=== PATIENT | female | born 1965 | race Hispanic/Latino ===

== ENCOUNTER 2020-11-25 23:26 | Inpatient (IN) | payer MEDICAID, SELFPAY ==
[2020-11-26] MEDS ORDERED: Ondansetron ODT 4 MG TAB PO PRN (01:53)
[2020-11-26 04:23] LABS: SARS-CoV-2 NAA Rapid Test Presumptive Positive (NotDetected)
[2020-11-26 06:36] LABS: Hemoglobin 14.3 g/dL (12.0-16.0); Mean Corpuscular HGB CONC 33.5 g/dL (32.0-36.0); Mean Corpuscular Hemoglobin 32.4 pg (27.0-31.0); Mean Corpuscular Volume 96.7 fL (78.0-98.0); Mean Platelet Volume 7.8 fL (7.4-10.4); Platelet Count 183 thou/uL (130-400); RBC Distribution Width 12.6 % (11.5-14.5); Red Blood Cell (RBC) Count 4.42 mill/uL (4.20-5.40)
[2020-11-26 06:42] LABS: ALT (SGPT) 202 U/L (8-55); AST (SGOT) 201 U/L (5-34); Albumin 3.7 g/dL (3.5-5.0); Alkaline Phosphatase 75 U/L (40-110); Anion Gap 17 mmol/L (10-20); BUN (Urea Nitrogen) 11 mg/dL (9.8-20.1); Bilirubin, Total 0.3 mg/dL (0.2-1.2); Calc. Creatinine Clearance 0 mL/min (70-130); Carbon Dioxide 19 mmol/L (22-29); Chloride 106 mmol/L (98-107); Globulin 4.2 g/dL (2.4-3.5); Glucose 214 mg/dL (70-105); Potassium 4.1 mmol/L (3.5-5.1); Protein, Total 7.9 g/dL (6.0-8.3); Sodium 138 mmol/L (136-145)
[2020-11-26 06:49] LABS: Band 5 % (5-11); Lymphocytes 40 % (21-51); MDiff Complete? YES; Monocytes 7 % (0-10); Neutrophil 47 % (42-75); Platelet Morphology Comment Appears Adequate; RBC Morphology Normal; Reactive Lymphocytes 1 % (0-10)
[2020-11-26] MEDS ORDERED: Enoxaparin Sodium 40 MG/0.4 ML SYRINGE SC SCH (09:00)
[2020-11-26] MEDS ORDERED: Dexamethasone 10 MG/ML VIAL ONE (12:02)
[2020-11-26] MEDS: Dexamethasone Sod Phosphate 6 MG in Sodium Chloride 0.9% 50 ML IVPB SCH (12:02)
[2020-11-26] MEDS: Cholecalciferol (Vitamin D3) 400 UNITS TAB PO SCH (12:03)
[2020-11-26] MEDS: Ascorbic Acid 500 mg Chewable Tablet PO SCH (12:03)
[2020-11-26] MEDS: Zinc Sulfate 220 MG CAP PO SCH (12:04)
[2020-11-26] MEDS: Enoxaparin Sodium 40 MG/0.4 ML SYRINGE SC SCH (20:33)
[2020-11-26] MEDS: Guaifenesin DM 100-10/5 ML UDCUP PO PRN (20:34)
[2020-11-26] MEDS: Acetaminophen 325 MG TAB PO PRN (20:34)
[2020-11-27] MEDS: Acetaminophen 325 MG TAB PO PRN ×4 (01:28→20:26)
[2020-11-27] MEDS: Guaifenesin DM 100-10/5 ML UDCUP PO PRN ×3 (08:43→20:26)
[2020-11-27] MEDS: Ascorbic Acid 500 mg Chewable Tablet PO SCH (08:43)
[2020-11-27] MEDS: Famotidine 20 MG TAB PO SCH ×2 (08:44→20:11)
[2020-11-27] MEDS: Enoxaparin Sodium 40 MG/0.4 ML SYRINGE SC SCH ×2 (08:44→20:10)
[2020-11-27] MEDS: Zinc Sulfate 220 MG CAP PO SCH (08:44)
[2020-11-27] MEDS: Ondansetron PF 4 MG/2 ML Vial IVP PRN (09:05)
[2020-11-27] MEDS: Cholecalciferol (Vitamin D3) 400 UNITS TAB PO SCH (11:52)
[2020-11-27] MEDS: Dexamethasone Sod Phosphate 6 MG in Sodium Chloride 0.9% 50 ML IVPB SCH (11:52)
[2020-11-27] MEDS ORDERED: FLU VACC QS2020-21(6MOS UP)/PF 60 MCG/0.5 ML SYRINGE IM ONE (21:00)
[2020-11-28] MEDS: Guaifenesin DM 100-10/5 ML UDCUP PO PRN ×4 (02:02→22:06)
[2020-11-28] MEDS: Acetaminophen 325 MG TAB PO PRN ×3 (02:02→15:55)
[2020-11-28 06:35] LABS: #Basophils 0.1 thou/uL (0.0-0.2); #Lymphocytes 1.4 thou/uL (1.20-3.40); #Monocytes 0.3 thou/uL (0.11-0.59); #Neutrophils 12.6 thou/uL (1.40-6.50); %Basophils 0.6 % (0.0-1.0); %Eosinophils 0.1 % (0.0-10.0); %Monocytes 2.3 % (0.0-10.0); %Neutrophils 87.1 % (42.0-75.0); Hemoglobin 13.8 g/dL (12.0-16.0); Mean Corpuscular HGB CONC 32.4 g/dL (32.0-36.0); Mean Corpuscular Hemoglobin 31.1 pg (27.0-31.0); Mean Corpuscular Volume 95.9 fL (78.0-98.0); Mean Platelet Volume 8.2 fL (7.4-10.4); Platelet Count 225 thou/uL (130-400); RBC Distribution Width 12.6 % (11.5-14.5); Red Blood Cell (RBC) Count 4.44 mill/uL (4.20-5.40); White Blood Cell (WBC) Count 14.4 thou/uL (4.8-10.8)
[2020-11-28 06:57] LABS: Anion Gap 15 mmol/L (10-20); BUN (Urea Nitrogen) 14 mg/dL (9.8-20.1); Calc. Creatinine Clearance 129 mL/min (70-130); Calcium 8.2 mg/dL (7.8-10.44); Carbon Dioxide 25 mmol/L (22-29); Chloride 103 mmol/L (98-107); Glucose 183 mg/dL (70-105); Potassium 4.1 mmol/L (3.5-5.1); Sodium 139 mmol/L (136-145)
[2020-11-28] MEDS ORDERED: REMDESIVIR (EUA) 200 MG in Sodium Chloride 0.9% 250 ML 210 ML IV SCH (08:45)
[2020-11-28] MEDS: Enoxaparin Sodium 40 MG/0.4 ML SYRINGE SC SCH ×2 (09:08→22:06)
[2020-11-28] MEDS: Ascorbic Acid 500 mg Chewable Tablet PO SCH (09:09)
[2020-11-28] MEDS: Zinc Sulfate 220 MG CAP PO SCH (09:09)
[2020-11-28] MEDS: Cholecalciferol (Vitamin D3) 400 UNITS TAB PO SCH (09:09)
[2020-11-28] MEDS: Fluconazole 100 MG TAB PO SCH (09:09)
[2020-11-28] MEDS: Famotidine 20 MG TAB PO SCH ×2 (09:14→22:06)
[2020-11-28] MEDS: Dexamethasone Sod Phosphate 6 MG in Sodium Chloride 0.9% 50 ML IVPB SCH (09:14)
[2020-11-28] MEDS: Ondansetron PF 4 MG/2 ML Vial IVP PRN (10:49)
[2020-11-28 23:32] LABS: Actual Bicarbonate (HCO3a) 27.1 mEq/L (22-28); Base Excess (BEa) 2.1 mEq/L (-2.0 to +3.0); CO2 Tension 43.7 mmHg (35.0-45.0); Calcium, Ionized (arterial) 1.12 mmol/L (1.12-1.30); Carboxyhemoglobin (COHb) 0.9 gm% (0.0-3.0); Hemoglobin (Hb) 14.4 g/dL (12.0-16.0); Potassium - ABG Lab 3.93 mmol/L (3.70-5.30); pH, Arterial 7.41 (7.35-7.45)
[2020-11-28 23:36] LABS: Puncture Site RRA
[2020-11-28 23:37] LABS: ALV-art Gradient 399.475 mmHg (0-20)
[2020-11-29] MEDS: Ascorbic Acid 500 mg Chewable Tablet PO SCH (10:37)
[2020-11-29] MEDS: REMDESIVIR (EUA) 100 MG in Sodium Chloride 0.9% 250 ML 230 ML IV SCH (10:37)
[2020-11-29] MEDS: Dexamethasone Sod Phosphate 6 MG in Sodium Chloride 0.9% 50 ML IVPB SCH ×2 (10:37→20:54)
[2020-11-29] MEDS: Enoxaparin Sodium 40 MG/0.4 ML SYRINGE SC SCH ×2 (10:37→20:55)
[2020-11-29] MEDS: Famotidine 20 MG TAB PO SCH ×2 (10:38→20:55)
[2020-11-29] MEDS: Zinc Sulfate 220 MG CAP PO SCH (10:38)
[2020-11-29] MEDS: Fluconazole 100 MG TAB PO SCH (10:38)
[2020-11-29] MEDS: Cholecalciferol (Vitamin D3) 400 UNITS TAB PO SCH (10:38)
[2020-11-30 04:00] LABS: #Lymphocytes 0.8 thou/uL (1.20-3.40); #Monocytes 0.3 thou/uL (0.11-0.59); #Neutrophils 9.7 thou/uL (1.40-6.50); %Basophils 0.2 % (0.0-1.0); %Eosinophils 0.1 % (0.0-10.0); %Lymphocytes 7.7 % (21.0-51.0); %Monocytes 2.8 % (0.0-10.0); %Neutrophils 89.2 % (42.0-75.0); Mean Corpuscular Volume 96.9 fL (78.0-98.0); Mean Platelet Volume 8.7 fL (7.4-10.4); Platelet Count 251 thou/uL (130-400); RBC Distribution Width 12.7 % (11.5-14.5); Red Blood Cell (RBC) Count 4.38 mill/uL (4.20-5.40); White Blood Cell (WBC) Count 10.8 thou/uL (4.8-10.8)
[2020-11-30 04:19] LABS: ALT (SGPT) 66 U/L (8-55); AST (SGOT) 55 U/L (5-34); Albumin 3.3 g/dL (3.5-5.0); Alkaline Phosphatase 134 U/L (40-110); Anion Gap 16 mmol/L (10-20); BUN (Urea Nitrogen) 19 mg/dL (9.8-20.1); Bilirubin, Direct 0.3 mg/dL (0.1-0.3); Bilirubin, Total 0.4 mg/dL (0.2-1.2); Calc. Creatinine Clearance 138 mL/min (70-130); Calcium 8.3 mg/dL (7.8-10.44); Carbon Dioxide 24 mmol/L (22-29); Chloride 107 mmol/L (98-107); Glucose 195 mg/dL (70-105); Potassium 4.2 mmol/L (3.5-5.1); Protein, Total 7.3 g/dL (6.0-8.3); Sodium 143 mmol/L (136-145)
[2020-11-30] MEDS: Ascorbic Acid 500 mg Chewable Tablet PO SCH (07:45)
[2020-11-30] MEDS: Enoxaparin Sodium 40 MG/0.4 ML SYRINGE SC SCH ×2 (07:46→20:33)
[2020-11-30] MEDS: Fluconazole 100 MG TAB PO SCH (07:46)
[2020-11-30] MEDS: Famotidine 20 MG TAB PO SCH ×2 (07:46→20:33)
[2020-11-30] MEDS: Cholecalciferol (Vitamin D3) 400 UNITS TAB PO SCH (07:46)
[2020-11-30] MEDS: Zinc Sulfate 220 MG CAP PO SCH (07:46)
[2020-11-30] MEDS: Dexamethasone Sod Phosphate 6 MG in Sodium Chloride 0.9% 50 ML IVPB SCH ×2 (09:23→20:33)
[2020-11-30] MEDS: REMDESIVIR (EUA) 100 MG in Sodium Chloride 0.9% 250 ML 230 ML IV SCH (11:35)
[2020-12-01] MEDS: Ondansetron PF 4 MG/2 ML Vial IVP PRN (02:46)
[2020-12-01 04:39] LABS: SARS-CoV-2 MS2 Positive; SARS-CoV-2 N Gene Positive; SARS-CoV-2 S Gene Positive; SARS-CoV-2 by NAA DETECTED (NotDetected); SARS-CoV-2 orf1ab Positive
[2020-12-01 04:52] LABS: ALT (SGPT) 51 U/L (8-55); AST (SGOT) 46 U/L (5-34); Albumin 3.3 g/dL (3.5-5.0); Alkaline Phosphatase 195 U/L (40-110); Anion Gap 16 mmol/L (10-20); BUN (Urea Nitrogen) 25 mg/dL (9.8-20.1); Bilirubin, Direct 0.2 mg/dL (0.1-0.3); Bilirubin, Total 0.4 mg/dL (0.2-1.2); Calc. Creatinine Clearance 134 mL/min (70-130); Calcium 8.4 mg/dL (7.8-10.44); Carbon Dioxide 25 mmol/L (22-29); Chloride 109 mmol/L (98-107); Glucose 246 mg/dL (70-105); Potassium 4.3 mmol/L (3.5-5.1); Protein, Total 7.5 g/dL (6.0-8.3); Sodium 146 mmol/L (136-145)
[2020-12-01 05:29] LABS: Band 4 % (5-11); Hemoglobin 13.6 g/dL (12.0-16.0); Lymphocytes 6 % (21-51); MDiff Complete? YES; Mean Corpuscular HGB CONC 32.6 g/dL (32.0-36.0); Mean Corpuscular Hemoglobin 31.7 pg (27.0-31.0); Mean Corpuscular Volume 97.3 fL (78.0-98.0); Monocytes 2 % (0-10); Neutrophil 88 % (42-75); Platelet Count 302 thou/uL (130-400); RBC Distribution Width 12.8 % (11.5-14.5); White Blood Cell (WBC) Count 14.3 thou/uL (4.8-10.8)
[2020-12-01] MEDS: Ascorbic Acid 500 mg Chewable Tablet PO SCH (08:04)
[2020-12-01] MEDS: Cholecalciferol (Vitamin D3) 400 UNITS TAB PO SCH (08:04)
[2020-12-01] MEDS: Famotidine 20 MG TAB PO SCH ×2 (08:05→20:36)
[2020-12-01] MEDS: Zinc Sulfate 220 MG CAP PO SCH (08:05)
[2020-12-01] MEDS: Enoxaparin Sodium 40 MG/0.4 ML SYRINGE SC SCH ×2 (08:06→20:36)
[2020-12-01] MEDS: Dexamethasone Sod Phosphate 6 MG in Sodium Chloride 0.9% 50 ML IVPB SCH ×2 (08:07→20:36)
[2020-12-01] MEDS: REMDESIVIR (EUA) 100 MG in Sodium Chloride 0.9% 250 ML 230 ML IV SCH (12:31)
[2020-12-02] MEDS: Acetaminophen 325 MG TAB PO PRN ×3 (03:03→20:56)
[2020-12-02] MEDS: Guaifenesin DM 100-10/5 ML UDCUP PO PRN (03:05)
[2020-12-02 04:07] LABS: ALT (SGPT) 43 U/L (8-55); AST (SGOT) 42 U/L (5-34); Albumin 3.1 g/dL (3.5-5.0); Alkaline Phosphatase 252 U/L (40-110); Anion Gap 18 mmol/L (10-20); BUN (Urea Nitrogen) 22 mg/dL (9.8-20.1); Bilirubin, Direct 0.2 mg/dL (0.1-0.3); Bilirubin, Total 0.5 mg/dL (0.2-1.2); Calc. Creatinine Clearance 133 mL/min (70-130); Calcium 8.1 mg/dL (7.8-10.44); Carbon Dioxide 22 mmol/L (22-29); Chloride 107 mmol/L (98-107); Glucose 298 mg/dL (70-105); Potassium 4.6 mmol/L (3.5-5.1); Sodium 142 mmol/L (136-145)
[2020-12-02 04:33] LABS: Band 10 % (5-11); Lymphocytes 4 % (21-51); MDiff Complete? YES; Mean Corpuscular HGB CONC 30.4 g/dL (32.0-36.0); Mean Corpuscular Hemoglobin 29.5 pg (27.0-31.0); Mean Corpuscular Volume 97.2 fL (78.0-98.0); Neutrophil 86 % (42-75); Platelet Count 222 thou/uL (130-400); RBC Distribution Width 12.9 % (11.5-14.5); Red Blood Cell (RBC) Count 4.74 mill/uL (4.20-5.40); White Blood Cell (WBC) Count 12.8 thou/uL (4.8-10.8)
[2020-12-02] MEDS: Cholecalciferol (Vitamin D3) 400 UNITS TAB PO SCH (09:16)
[2020-12-02] MEDS: Famotidine 20 MG TAB PO SCH (09:16)
[2020-12-02] MEDS: Zinc Sulfate 220 MG CAP PO SCH (09:16)
[2020-12-02] MEDS: Enoxaparin Sodium 40 MG/0.4 ML SYRINGE SC SCH ×2 (09:16→20:56)
[2020-12-02] MEDS: Dexamethasone Sod Phosphate 6 MG in Sodium Chloride 0.9% 50 ML IVPB SCH ×2 (09:17→20:56)
[2020-12-02] MEDS: Ascorbic Acid 500 mg Chewable Tablet PO SCH (09:17)
[2020-12-02] MEDS: REMDESIVIR (EUA) 100 MG in Sodium Chloride 0.9% 250 ML 230 ML IV SCH (11:11)
[2020-12-02] MEDS ORDERED: Pantoprazole 40 MG VIAL IVP SCH (16:15)
[2020-12-02] MEDS: Doxycycline 100 MG CAP PO SCH (20:56)
[2020-12-03] MEDS: Guaifenesin DM 100-10/5 ML UDCUP PO PRN (02:22)
[2020-12-03 03:58] LABS: Anion Gap 15 mmol/L (10-20); BUN (Urea Nitrogen) 19 mg/dL (9.8-20.1); Calc. Creatinine Clearance 142 mL/min (70-130); Calcium 8.1 mg/dL (7.8-10.44); Carbon Dioxide 25 mmol/L (22-29); Chloride 101 mmol/L (98-107); Glucose 270 mg/dL (70-105); Potassium 4.6 mmol/L (3.5-5.1); Sodium 136 mmol/L (136-145)
[2020-12-03 04:40] LABS: Band 6 % (5-11); Hemoglobin 13.9 g/dL (12.0-16.0); Lymphocytes 8 % (21-51); MDiff Complete? YES; Mean Corpuscular HGB CONC 32.2 g/dL (32.0-36.0); Mean Corpuscular Hemoglobin 31.3 pg (27.0-31.0); Mean Corpuscular Volume 97.2 fL (78.0-98.0); Mean Platelet Volume 8.9 fL (7.4-10.4); Monocytes 1 % (0-10); Neutrophil 85 % (42-75); Platelet Count 217 thou/uL (130-400); RBC Distribution Width 12.6 % (11.5-14.5); Red Blood Cell (RBC) Count 4.45 mill/uL (4.20-5.40); White Blood Cell (WBC) Count 14.5 thou/uL (4.8-10.8)
[2020-12-03] MEDS: Doxycycline 100 MG CAP PO SCH ×2 (09:35→21:00)
[2020-12-03] MEDS: Enoxaparin Sodium 40 MG/0.4 ML SYRINGE SC SCH ×2 (09:36→21:01)
[2020-12-03] MEDS: Cholecalciferol (Vitamin D3) 400 UNITS TAB PO SCH (09:36)
[2020-12-03] MEDS: Zinc Sulfate 220 MG CAP PO SCH (09:36)
[2020-12-03] MEDS: Pantoprazole 40 MG VIAL IVP SCH (09:36)
[2020-12-03] MEDS: Ascorbic Acid 500 mg Chewable Tablet PO SCH (09:44)
[2020-12-03] MEDS: Dexamethasone Sod Phosphate 6 MG in Sodium Chloride 0.9% 50 ML IVPB SCH ×2 (10:45→21:00)
[2020-12-03] MEDS: Acetaminophen 325 MG TAB PO PRN ×2 (17:20→21:01)
[2020-12-04 04:24] LABS: Anion Gap 17 mmol/L (10-20); BUN (Urea Nitrogen) 18 mg/dL (9.8-20.1); Calc. Creatinine Clearance 130 mL/min (70-130); Calcium 8.1 mg/dL (7.8-10.44); Carbon Dioxide 26 mmol/L (22-29); Chloride 100 mmol/L (98-107); Glucose 347 mg/dL (70-105); Potassium 4.7 mmol/L (3.5-5.1); Sodium 138 mmol/L (136-145)
[2020-12-04 04:31] LABS: #Basophils 0.2 thou/uL (0.0-0.2); #Lymphocytes 0.6 thou/uL (1.20-3.40); #Monocytes 0.2 thou/uL (0.11-0.59); #Neutrophils 13.9 thou/uL (1.40-6.50); %Basophils 1.1 % (0.0-1.0); %Eosinophils 0.3 % (0.0-10.0); %Monocytes 1.5 % (0.0-10.0); %Neutrophils 93.1 % (42.0-75.0); Hemoglobin 14.9 g/dL (12.0-16.0); Mean Corpuscular HGB CONC 32.7 g/dL (32.0-36.0); Mean Corpuscular Hemoglobin 31.9 pg (27.0-31.0); Mean Corpuscular Volume 97.7 fL (78.0-98.0); Mean Platelet Volume 9.3 fL (7.4-10.4); Platelet Count 161 thou/uL (130-400); RBC Distribution Width 12.6 % (11.5-14.5); RBC Morphology Normal; Red Blood Cell (RBC) Count 4.68 mill/uL (4.20-5.40)
[2020-12-04] MEDS: Cholecalciferol (Vitamin D3) 400 UNITS TAB PO SCH (11:41)
[2020-12-04] MEDS: Dexamethasone Sod Phosphate 6 MG in Sodium Chloride 0.9% 50 ML IVPB SCH (11:42)
[2020-12-04] MEDS: Enoxaparin Sodium 40 MG/0.4 ML SYRINGE SC SCH ×2 (11:42→20:49)
[2020-12-04] MEDS: Doxycycline 100 MG CAP PO SCH ×2 (11:42→20:49)
[2020-12-04] MEDS: Pantoprazole 40 MG VIAL IVP SCH (11:42)
[2020-12-04] MEDS: Ascorbic Acid 500 mg Chewable Tablet PO SCH (11:42)
[2020-12-04] MEDS: GUAIFENESIN SF SOLN 200 MG/10 ML UDCUP PO PRN (11:43)
[2020-12-04] MEDS: Zinc Sulfate 220 MG CAP PO SCH (11:43)
[2020-12-04] MEDS ORDERED: Propofol 1,000 MG/100 ML VIAL IV ONE (14:32)
[2020-12-04] MEDS ORDERED: Ventilator Sedation Protocol 1 EACH FS SCH (15:00)
[2020-12-04] MEDS ORDERED: Morphine 2 MG/ML VIAL SLOW IVP PRN (15:00)
[2020-12-04] MEDS ORDERED: Fentanyl BOLUS 250 ML IVPB PRN (15:00)
[2020-12-04] MEDS ORDERED: DISCONTINUE PREVIOUS NARCOTIC PAIN MEDICATIONS AND BENZODIAZEPINES FS SCH (15:00)
[2020-12-04 15:29] LABS: Actual Bicarbonate (HCO3a) 29.1 mEq/L (22-28); Base Excess (BEa) 2.1 mEq/L (-2.0 to +3.0); CO2 Tension 54.7 mmHg (35.0-45.0); Calcium, Ionized (arterial) 1.17 mmol/L (1.12-1.30); Hemoglobin (Hb) 14.8 g/dL (12.0-16.0); Potassium - ABG Lab 4.62 mmol/L (3.70-5.30); pH, Arterial 7.34 (7.35-7.45)
[2020-12-04] MEDS: Lorazepam 2 MG/ML VIAL SLOW IVP PRN ×3 (15:30→17:42)
[2020-12-04 15:35] LABS: O2 Tension (PaO2), arterial 50.1 mmHg (80.0-100.0)
[2020-12-04 15:37] LABS: ALV-art Gradient 594.525 mmHg (0-20); Puncture Site RRA
[2020-12-04] MEDS: fentaNYL Citrate/PF 2,000 MCG in Sodium Chloride 0.9% 60 ML IV SCH (15:48)
[2020-12-04] MEDS ORDERED: Vecuronium Bromide 20 MG VIAL IV PRN (15:54)
[2020-12-04 16:49] LABS: Actual Bicarbonate (HCO3a) 30.3 mEq/L (22-28); Base Excess (BEa) 4.4 mEq/L (-2.0 to +3.0); CO2 Tension 49.7 mmHg (35.0-45.0); Calcium, Ionized (arterial) 1.16 mmol/L (1.12-1.30); Carboxyhemoglobin (COHb) 0.8 gm% (0.0-3.0); Hemoglobin (Hb) 14.7 g/dL (12.0-16.0); Potassium - ABG Lab 4.63 mmol/L (3.70-5.30)
[2020-12-04 16:50] LABS: ALV-art Gradient 598.875 mmHg (0-20); Puncture Site RBA
[2020-12-04] MEDS: Vecuronium 10 MG VIAL IV PRN ×2 (17:04→22:48)
[2020-12-04] MEDS: Cefepime 1 GM in Sodium Chloride 0.9% 100 ML IVPB SCH (18:00)
[2020-12-04] MEDS: methylPREDNISolone Sod Succ 40 MG VIAL IVP SCH (18:52)
[2020-12-04] MEDS: Propofol 1,000 MG/100 ML VIAL IV PRN (20:50)
[2020-12-05] MEDS: methylPREDNISolone Sod Succ 40 MG VIAL IVP SCH ×4 (00:14→17:52)
[2020-12-05] MEDS: HumaLOG 300 UNITS/3 ML VIAL SC PRN ×5 (00:14→20:39)
[2020-12-05] MEDS: Propofol 1,000 MG/100 ML VIAL IV PRN ×2 (03:36→10:23)
[2020-12-05 04:07] LABS: #Basophils 0.1 thou/uL (0.0-0.2); #Lymphocytes 0.7 thou/uL (1.20-3.40); #Monocytes 0.2 thou/uL (0.11-0.59); #Neutrophils 13.3 thou/uL (1.40-6.50); %Basophils 0.4 % (0.0-1.0); %Lymphocytes 4.6 % (21.0-51.0); %Monocytes 1.4 % (0.0-10.0); %Neutrophils 93.6 % (42.0-75.0); Hemoglobin 13.2 g/dL (12.0-16.0); Mean Corpuscular HGB CONC 32.9 g/dL (32.0-36.0); Mean Corpuscular Hemoglobin 31.5 pg (27.0-31.0); Mean Corpuscular Volume 95.6 fL (78.0-98.0); Mean Platelet Volume 9.3 fL (7.4-10.4); Platelet Count 174 thou/uL (130-400); RBC Distribution Width 12.5 % (11.5-14.5); White Blood Cell (WBC) Count 14.2 thou/uL (4.8-10.8)
[2020-12-05 04:39] LABS: ALT (SGPT) 23 U/L (8-55); AST (SGOT) 25 U/L (5-34); Albumin 2.7 g/dL (3.5-5.0); Alkaline Phosphatase 211 U/L (40-110); Bilirubin, Direct 0.3 mg/dL (0.1-0.3); Bilirubin, Total 0.4 mg/dL (0.2-1.2); CRP (Inflammatory) 4.96 mg/dL (= or < 0.5); Protein, Total 6.4 g/dL (6.0-8.3)
[2020-12-05 04:40] LABS: Anion Gap 15 mmol/L (10-20); BUN (Urea Nitrogen) 17 mg/dL (9.8-20.1); Calc. Creatinine Clearance 142 mL/min (70-130); Carbon Dioxide 30 mmol/L (22-29); Chloride 99 mmol/L (98-107); Glucose 335 mg/dL (70-105); Potassium 4.6 mmol/L (3.5-5.1); Sodium 139 mmol/L (136-145)
[2020-12-05] MEDS: Cefepime 1 GM in Sodium Chloride 0.9% 100 ML IVPB SCH ×2 (05:07→17:49)
[2020-12-05 07:46] LABS: Actual Bicarbonate (HCO3a) 29.1 mEq/L (22-28); Base Excess (BEa) 6.3 mEq/L (-2.0 to +3.0); Calcium, Ionized (arterial) 1.14 mmol/L (1.12-1.30); Carboxyhemoglobin (COHb) 0.1 gm% (0.0-3.0); Hemoglobin (Hb) 13.7 g/dL (12.0-16.0); O2 Tension (PaO2), arterial 76.7 mmHg (80.0-100.0); Potassium - ABG Lab 4.57 mmol/L (3.70-5.30); pH, Arterial 7.53 (7.35-7.45)
[2020-12-05 07:59] LABS: Puncture Site RRA
[2020-12-05] MEDS ORDERED: Insulin Glargine 10 UNITS in Pre-Filled Syringe 1 EACH SC SCH (09:00)
[2020-12-05] MEDS: Doxycycline 100 MG CAP PO SCH ×2 (09:50→20:04)
[2020-12-05] MEDS: Cholecalciferol (Vitamin D3) 400 UNITS TAB PO SCH (09:50)
[2020-12-05] MEDS: Zinc Sulfate 220 MG CAP PO SCH (09:50)
[2020-12-05] MEDS: Enoxaparin Sodium 40 MG/0.4 ML SYRINGE SC SCH ×2 (09:51→20:03)
[2020-12-05] MEDS: Pantoprazole 40 MG VIAL IVP SCH (09:52)
[2020-12-05] MEDS: fentaNYL Citrate/PF 2,000 MCG in Sodium Chloride 0.9% 60 ML IV SCH (10:02)
[2020-12-05] MEDS: Ascorbic Acid 500 mg Chewable Tablet PO SCH (14:27)
[2020-12-05] MEDS: Vecuronium 10 MG VIAL IV PRN (16:10)
[2020-12-05] MEDS: Famotidine/PF 20 mg/2ml Vial SLOW IVP SCH (20:03)
[2020-12-06] MEDS: methylPREDNISolone Sod Succ 40 MG VIAL IVP SCH ×5 (01:38→23:35)
[2020-12-06] MEDS: HumaLOG 300 UNITS/3 ML VIAL SC PRN ×4 (01:39→18:18)
[2020-12-06 04:16] LABS: #Basophils 0.1 thou/uL (0.0-0.2); #Lymphocytes 0.6 thou/uL (1.20-3.40); #Monocytes 0.2 thou/uL (0.11-0.59); #Neutrophils 14.7 thou/uL (1.40-6.50); %Basophils 0.8 % (0.0-1.0); %Monocytes 1.3 % (0.0-10.0); %Neutrophils 93.9 % (42.0-75.0); Hemoglobin 13.5 g/dL (12.0-16.0); Mean Corpuscular HGB CONC 33.1 g/dL (32.0-36.0); Mean Corpuscular Hemoglobin 31.4 pg (27.0-31.0); Mean Corpuscular Volume 94.8 fL (78.0-98.0); Mean Platelet Volume 9.7 fL (7.4-10.4); Platelet Count 184 thou/uL (130-400); RBC Distribution Width 12.3 % (11.5-14.5); Red Blood Cell (RBC) Count 4.29 mill/uL (4.20-5.40); White Blood Cell (WBC) Count 15.7 thou/uL (4.8-10.8)
[2020-12-06] MEDS: fentaNYL Citrate/PF 2,000 MCG in Sodium Chloride 0.9% 60 ML IV SCH ×2 (04:16→20:41)
[2020-12-06 04:44] LABS: Anion Gap 14 mmol/L (10-20); BUN (Urea Nitrogen) 26 mg/dL (9.8-20.1); Calc. Creatinine Clearance 137 mL/min (70-130); Calcium 7.9 mg/dL (7.8-10.44); Carbon Dioxide 28 mmol/L (22-29); Chloride 102 mmol/L (98-107); Glucose 370 mg/dL (70-105); Potassium 4.3 mmol/L (3.5-5.1); Sodium 140 mmol/L (136-145)
[2020-12-06] MEDS: Ascorbic Acid 500 mg Chewable Tablet PO SCH (07:56)
[2020-12-06] MEDS: Doxycycline 100 MG CAP PO SCH ×2 (07:56→19:45)
[2020-12-06] MEDS: Famotidine/PF 20 mg/2ml Vial SLOW IVP SCH (07:56)
[2020-12-06] MEDS: Enoxaparin Sodium 40 MG/0.4 ML SYRINGE SC SCH ×2 (07:56→19:45)
[2020-12-06] MEDS: Zinc Sulfate 220 MG CAP PO SCH (07:57)
[2020-12-06] MEDS: Cholecalciferol (Vitamin D3) 400 UNITS TAB PO SCH (07:57)
[2020-12-06] MEDS ORDERED: Insulin Glargine 20 UNITS in Pre-Filled Syringe 1 EACH SC SCH (09:00)
[2020-12-06] MEDS: Cefepime 1 GM in Sodium Chloride 0.9% 100 ML IVPB SCH ×2 (10:57→16:43)
[2020-12-06] MEDS: Propofol 1,000 MG/100 ML VIAL IV PRN ×2 (13:18→22:00)
[2020-12-06] MEDS: Vecuronium 10 MG VIAL IV PRN ×2 (16:43→22:01)
[2020-12-06] MEDS: Lorazepam 2 MG/ML VIAL SLOW IVP PRN ×2 (16:43→20:54)
[2020-12-06] MEDS: Famotidine 20 MG TAB PO SCH (19:44)
[2020-12-06] MEDS: Insulin Glargine 20 UNITS in Pre-Filled Syringe 1 EACH SC SCH (19:45)
[2020-12-07] MEDS: HumaLOG 300 UNITS/3 ML VIAL SC PRN ×5 (00:13→23:11)
[2020-12-07] MEDS: Vecuronium 10 MG VIAL IV PRN ×4 (01:07→09:40)
[2020-12-07] MEDS: Lorazepam 2 MG/ML VIAL SLOW IVP PRN ×3 (02:29→09:40)
[2020-12-07] MEDS: Cefepime 1 GM in Sodium Chloride 0.9% 100 ML IVPB SCH ×2 (03:42→17:13)
[2020-12-07 05:03] LABS: #Basophils 0.1 thou/uL (0.0-0.2); #Lymphocytes 0.7 thou/uL (1.20-3.40); #Monocytes 0.3 thou/uL (0.11-0.59); #Neutrophils 14.7 thou/uL (1.40-6.50); %Basophils 0.5 % (0.0-1.0); %Eosinophils 0.1 % (0.0-10.0); %Lymphocytes 4.1 % (21.0-51.0); %Monocytes 2.1 % (0.0-10.0); %Neutrophils 93.2 % (42.0-75.0); Hemoglobin 12.5 g/dL (12.0-16.0); Mean Corpuscular HGB CONC 32.7 g/dL (32.0-36.0); Mean Corpuscular Volume 94.9 fL (78.0-98.0); Mean Platelet Volume 9.6 fL (7.4-10.4); Platelet Count 203 thou/uL (130-400); RBC Distribution Width 12.5 % (11.5-14.5); Red Blood Cell (RBC) Count 4.04 mill/uL (4.20-5.40); White Blood Cell (WBC) Count 15.8 thou/uL (4.8-10.8)
[2020-12-07 05:25] LABS: Anion Gap 13 mmol/L (10-20); BUN (Urea Nitrogen) 28 mg/dL (9.8-20.1); CRP (Inflammatory) 1.96 mg/dL (= or < 0.5); Calc. Creatinine Clearance 142 mL/min (70-130); Calcium 7.7 mg/dL (7.8-10.44); Carbon Dioxide 28 mmol/L (22-29); Chloride 105 mmol/L (98-107); Glucose 366 mg/dL (70-105); Potassium 4.2 mmol/L (3.5-5.1); Sodium 142 mmol/L (136-145)
[2020-12-07] MEDS: methylPREDNISolone Sod Succ 40 MG VIAL IVP SCH ×4 (05:58→22:48)
[2020-12-07] MEDS: Ascorbic Acid 500 mg Chewable Tablet PO SCH (07:57)
[2020-12-07] MEDS: Cholecalciferol (Vitamin D3) 400 UNITS TAB PO SCH (07:57)
[2020-12-07] MEDS: Famotidine 20 MG TAB PO SCH ×2 (07:57→19:48)
[2020-12-07] MEDS: Propofol 1,000 MG/100 ML VIAL IV PRN ×3 (07:57→22:48)
[2020-12-07] MEDS: Enoxaparin Sodium 40 MG/0.4 ML SYRINGE SC SCH ×2 (07:57→19:48)
[2020-12-07] MEDS: Doxycycline 100 MG CAP PO SCH ×2 (07:58→19:48)
[2020-12-07] MEDS: Zinc Sulfate 220 MG CAP PO SCH (07:58)
[2020-12-07] MEDS: Insulin Glargine 20 UNITS in Pre-Filled Syringe 1 EACH SC SCH (09:31)
[2020-12-07] MEDS ORDERED: Rocuronium Bromide 10 MG/ML (10ML VIAL) ONE (12:28)
[2020-12-07] MEDS: fentaNYL Citrate/PF 2,000 MCG in Sodium Chloride 0.9% 60 ML IV SCH (12:31)
[2020-12-07] MEDS ORDERED: Insulin Glargine 10 UNITS in Pre-Filled Syringe 1 EACH SC SCH (13:30)
[2020-12-07] MEDS ORDERED: Dextrose 5% in Water 1,000 ML IV PRN (17:30)
[2020-12-07] MEDS ORDERED: Dextrose 50% Abboject 50 ML SYRINGE IVP PRN (17:30)
[2020-12-07] MEDS: Insulin Glargine 25 UNITS in Pre-Filled Syringe 1 EACH SC SCH (20:41)
[2020-12-08 03:50] LABS: #Basophils 0.1 thou/uL (0.0-0.2); #Lymphocytes 0.8 thou/uL (1.20-3.40); #Monocytes 0.3 thou/uL (0.11-0.59); #Neutrophils 12.8 thou/uL (1.40-6.50); %Basophils 0.4 % (0.0-1.0); %Eosinophils 0.2 % (0.0-10.0); %Lymphocytes 5.9 % (21.0-51.0); %Monocytes 2.3 % (0.0-10.0); %Neutrophils 91.2 % (42.0-75.0); Hemoglobin 12.6 g/dL (12.0-16.0); Mean Corpuscular Hemoglobin 31.3 pg (27.0-31.0); Mean Corpuscular Volume 94.8 fL (78.0-98.0); Platelet Count 201 thou/uL (130-400); RBC Distribution Width 12.6 % (11.5-14.5); Red Blood Cell (RBC) Count 4.01 mill/uL (4.20-5.40)
[2020-12-08 04:09] LABS: Anion Gap 15 mmol/L (10-20); BUN (Urea Nitrogen) 33 mg/dL (9.8-20.1); Calc. Creatinine Clearance 128 mL/min (70-130); Calcium 7.8 mg/dL (7.8-10.44); Carbon Dioxide 25 mmol/L (22-29); Chloride 109 mmol/L (98-107); Glucose 348 mg/dL (70-105); Sodium 145 mmol/L (136-145)
[2020-12-08] MEDS: HumaLOG 300 UNITS/3 ML VIAL SC PRN ×4 (04:19→22:25)
[2020-12-08] MEDS: Cefepime 1 GM in Sodium Chloride 0.9% 100 ML IVPB SCH ×2 (05:10→17:17)
[2020-12-08] MEDS: methylPREDNISolone Sod Succ 40 MG VIAL IVP SCH ×3 (05:12→17:18)
[2020-12-08] MEDS: Insulin Glargine 25 UNITS in Pre-Filled Syringe 1 EACH SC SCH ×2 (09:26→20:12)
[2020-12-08] MEDS: Doxycycline 100 MG CAP PO SCH ×2 (09:27→20:12)
[2020-12-08] MEDS: Enoxaparin Sodium 40 MG/0.4 ML SYRINGE SC SCH ×2 (09:27→20:12)
[2020-12-08] MEDS: Famotidine 20 MG TAB PO SCH ×2 (09:28→20:11)
[2020-12-08] MEDS: Ascorbic Acid 500 mg Chewable Tablet PO SCH (09:28)
[2020-12-08] MEDS: Cholecalciferol (Vitamin D3) 400 UNITS TAB PO SCH (09:28)
[2020-12-08] MEDS: Zinc Sulfate 220 MG CAP PO SCH (09:29)
[2020-12-08] MEDS: Propofol 1,000 MG/100 ML VIAL IV PRN ×3 (10:46→17:16)
[2020-12-08] MEDS: fentaNYL Citrate/PF 2,000 MCG in Sodium Chloride 0.9% 60 ML IV SCH (13:34)
[2020-12-08] MEDS: Lorazepam 2 MG/ML VIAL SLOW IVP PRN (15:56)
[2020-12-09] MEDS: methylPREDNISolone Sod Succ 40 MG VIAL IVP SCH ×5 (00:25→23:19)
[2020-12-09] MEDS: Propofol 1,000 MG/100 ML VIAL IV PRN ×5 (00:57→23:19)
[2020-12-09 04:33] LABS: #Lymphocytes 0.9 thou/uL (1.20-3.40); #Monocytes 0.3 thou/uL (0.11-0.59); #Neutrophils 12.3 thou/uL (1.40-6.50); %Basophils 0.3 % (0.0-1.0); %Eosinophils 0.2 % (0.0-10.0); %Lymphocytes 6.3 % (21.0-51.0); %Monocytes 2.4 % (0.0-10.0); %Neutrophils 90.7 % (42.0-75.0); Mean Corpuscular HGB CONC 33.1 g/dL (32.0-36.0); Mean Corpuscular Hemoglobin 31.7 pg (27.0-31.0); Mean Corpuscular Volume 95.8 fL (78.0-98.0); Mean Platelet Volume 10.3 fL (7.4-10.4); Platelet Count 197 thou/uL (130-400); RBC Distribution Width 12.7 % (11.5-14.5); White Blood Cell (WBC) Count 13.5 thou/uL (4.8-10.8)
[2020-12-09 05:00] LABS: Anion Gap 17 mmol/L (10-20); BUN (Urea Nitrogen) 36 mg/dL (9.8-20.1); Calc. Creatinine Clearance 127 mL/min (70-130); Calcium 7.9 mg/dL (7.8-10.44); Carbon Dioxide 23 mmol/L (22-29); Chloride 108 mmol/L (98-107); Glucose 421 mg/dL (70-105); Potassium 4.5 mmol/L (3.5-5.1); Sodium 143 mmol/L (136-145)
[2020-12-09] MEDS: Cefepime 1 GM in Sodium Chloride 0.9% 100 ML IVPB SCH ×2 (05:02→16:00)
[2020-12-09] MEDS: HumaLOG 300 UNITS/3 ML VIAL SC PRN ×4 (05:07→23:22)
[2020-12-09] MEDS: Cholecalciferol (Vitamin D3) 400 UNITS TAB PO SCH (08:02)
[2020-12-09] MEDS: Enoxaparin Sodium 40 MG/0.4 ML SYRINGE SC SCH ×2 (08:02→21:06)
[2020-12-09] MEDS: Doxycycline 100 MG CAP PO SCH ×2 (08:03→21:05)
[2020-12-09] MEDS: Insulin Glargine 25 UNITS in Pre-Filled Syringe 1 EACH SC SCH (08:03)
[2020-12-09] MEDS: Famotidine 20 MG TAB PO SCH ×2 (08:03→21:05)
[2020-12-09] MEDS: Zinc Sulfate 220 MG CAP PO SCH (08:04)
[2020-12-09] MEDS: Ascorbic Acid 500 mg Chewable Tablet PO SCH (08:04)
[2020-12-09] MEDS: fentaNYL Citrate/PF 2,000 MCG in Sodium Chloride 0.9% 60 ML IV SCH (09:41)
[2020-12-09] MEDS: Insulin Glargine 30 UNITS in Pre-Filled Syringe 1 EACH SC SCH (21:06)
[2020-12-10] MEDS ORDERED: Fentanyl CADD 100 ML ONE ×2 (03:17→21:33)
[2020-12-10 05:29] LABS: #Basophils 0.1 thou/uL (0.0-0.2); #Lymphocytes 1.1 thou/uL (1.20-3.40); #Monocytes 0.3 thou/uL (0.11-0.59); %Basophils 0.4 % (0.0-1.0); %Eosinophils 0.3 % (0.0-10.0); %Lymphocytes 6.9 % (21.0-51.0); %Monocytes 2.2 % (0.0-10.0); %Neutrophils 90.2 % (42.0-75.0); Hemoglobin 13.8 g/dL (12.0-16.0); Mean Corpuscular HGB CONC 31.4 g/dL (32.0-36.0); Mean Corpuscular Hemoglobin 30.1 pg (27.0-31.0); Mean Corpuscular Volume 95.9 fL (78.0-98.0); Mean Platelet Volume 9.7 fL (7.4-10.4); Platelet Count 201 thou/uL (130-400); RBC Distribution Width 12.9 % (11.5-14.5); Red Blood Cell (RBC) Count 4.58 mill/uL (4.20-5.40); White Blood Cell (WBC) Count 15.5 thou/uL (4.8-10.8)
[2020-12-10] MEDS: Cefepime 1 GM in Sodium Chloride 0.9% 100 ML IVPB SCH ×2 (05:41→17:56)
[2020-12-10] MEDS: methylPREDNISolone Sod Succ 40 MG VIAL IVP SCH ×4 (05:42→23:09)
[2020-12-10] MEDS: HumaLOG 300 UNITS/3 ML VIAL SC PRN ×4 (05:43→23:16)
[2020-12-10] MEDS: Propofol 1,000 MG/100 ML VIAL IV PRN ×2 (07:12→11:26)
[2020-12-10 08:30] LABS: Anion Gap 16 mmol/L (10-20); BUN (Urea Nitrogen) 33 mg/dL (9.8-20.1); Calc. Creatinine Clearance 146 mL/min (70-130); Calcium 7.8 mg/dL (7.8-10.44); Carbon Dioxide 20 mmol/L (22-29); Chloride 109 mmol/L (98-107); Glucose 287 mg/dL (70-105); Sodium 140 mmol/L (136-145)
[2020-12-10] MEDS: Cholecalciferol (Vitamin D3) 400 UNITS TAB PO SCH (09:18)
[2020-12-10] MEDS: Famotidine 20 MG TAB PO SCH ×2 (09:18→20:01)
[2020-12-10] MEDS: Doxycycline 100 MG CAP PO SCH ×2 (09:18→20:01)
[2020-12-10] MEDS: Ascorbic Acid 500 mg Chewable Tablet PO SCH (09:18)
[2020-12-10] MEDS: Enoxaparin Sodium 40 MG/0.4 ML SYRINGE SC SCH ×2 (09:18→20:01)
[2020-12-10] MEDS: Zinc Sulfate 220 MG CAP PO SCH (09:18)
[2020-12-10] MEDS: Insulin Glargine 30 UNITS in Pre-Filled Syringe 1 EACH SC SCH ×2 (09:19→20:01)
[2020-12-10] MEDS: Lorazepam 2 MG/ML VIAL SLOW IVP PRN ×2 (17:58→23:09)
[2020-12-11] MEDS: Cefepime 1 GM in Sodium Chloride 0.9% 100 ML IVPB SCH ×2 (05:04→17:07)
[2020-12-11] MEDS: HumaLOG 300 UNITS/3 ML VIAL SC PRN ×2 (05:04→11:24)
[2020-12-11] MEDS: methylPREDNISolone Sod Succ 40 MG VIAL IVP SCH ×3 (05:04→17:08)
[2020-12-11] MEDS: Insulin Glargine 30 UNITS in Pre-Filled Syringe 1 EACH SC SCH ×2 (08:46→21:06)
[2020-12-11] MEDS: Propofol 1,000 MG/100 ML VIAL IV PRN ×2 (08:46→21:21)
[2020-12-11] MEDS: Enoxaparin Sodium 40 MG/0.4 ML SYRINGE SC SCH ×2 (08:47→21:07)
[2020-12-11] MEDS: Zinc Sulfate 220 MG CAP PO SCH (08:47)
[2020-12-11] MEDS: Ascorbic Acid 500 mg Chewable Tablet PO SCH (08:47)
[2020-12-11] MEDS: Cholecalciferol (Vitamin D3) 400 UNITS TAB PO SCH (08:47)
[2020-12-11] MEDS: Famotidine 20 MG TAB PO SCH ×2 (08:47→21:07)
[2020-12-11] MEDS: Doxycycline 100 MG CAP PO SCH ×2 (10:46→21:07)
[2020-12-11] MEDS ORDERED: Fentanyl CADD 100 ML ONE (12:10)
[2020-12-11 13:56] LABS: Hemoglobin 13.7 g/dL (12.0-16.0); Mean Corpuscular HGB CONC 32.6 g/dL (32.0-36.0); Mean Corpuscular Hemoglobin 31.3 pg (27.0-31.0); Mean Corpuscular Volume 95.9 fL (78.0-98.0); Mean Platelet Volume 9.8 fL (7.4-10.4); Platelet Count 204 thou/uL (130-400); RBC Distribution Width 12.9 % (11.5-14.5); Red Blood Cell (RBC) Count 4.39 mill/uL (4.20-5.40); White Blood Cell (WBC) Count 16.6 thou/uL (4.8-10.8)
[2020-12-11 14:10] LABS: Anion Gap 14 mmol/L (10-20); BUN (Urea Nitrogen) 26 mg/dL (9.8-20.1); Calc. Creatinine Clearance 0 mL/min (70-130); Calcium 7.9 mg/dL (7.8-10.44); Carbon Dioxide 24 mmol/L (22-29); Chloride 107 mmol/L (98-107); Glucose 205 mg/dL (70-105); Potassium 4.4 mmol/L (3.5-5.1); Sodium 141 mmol/L (136-145)
[2020-12-11 14:26] LABS: #Lymphocytes 1.5 thou/uL (1.20-3.40); #Monocytes 0.5 thou/uL (0.11-0.59); #Neutrophils 15.2 thou/uL (1.40-6.50); Lymphocytes 8 % (21-51); MDiff Complete? YES; Monocytes 4 % (0-10); Myelocyte 2 % (0-0); Neutrophil 86 % (42-75); Platelet Morphology Comment Appears Adequate; RBC Morphology Normal
[2020-12-11] MEDS: Lorazepam 2 MG/ML VIAL SLOW IVP PRN (21:21)
[2020-12-12] MEDS: methylPREDNISolone Sod Succ 40 MG VIAL IVP SCH ×5 (00:11→23:49)
[2020-12-12] MEDS ORDERED: Fentanyl CADD 100 ML ONE ×2 (01:43→16:43)
[2020-12-12] MEDS: Propofol 1,000 MG/100 ML VIAL IV PRN ×3 (03:59→21:02)
[2020-12-12] MEDS: HumaLOG 300 UNITS/3 ML VIAL SC PRN ×3 (04:27→21:22)
[2020-12-12 04:58] LABS: #Lymphocytes 1.4 thou/uL (1.20-3.40); #Monocytes 0.2 thou/uL (0.11-0.59); #Neutrophils 16.5 thou/uL (1.40-6.50); %Basophils 0.1 % (0.0-1.0); %Eosinophils 0.2 % (0.0-10.0); %Lymphocytes 7.6 % (21.0-51.0); %Monocytes 1.3 % (0.0-10.0); %Neutrophils 90.7 % (42.0-75.0); Hemoglobin 14.3 g/dL (12.0-16.0); Mean Corpuscular HGB CONC 32.3 g/dL (32.0-36.0); Mean Corpuscular Volume 96.1 fL (78.0-98.0); Platelet Count 220 thou/uL (130-400); RBC Distribution Width 13.1 % (11.5-14.5); White Blood Cell (WBC) Count 18.2 thou/uL (4.8-10.8)
[2020-12-12 05:03] LABS: Anion Gap 14 mmol/L (10-20); BUN (Urea Nitrogen) 26 mg/dL (9.8-20.1); Calc. Creatinine Clearance 0 mL/min (70-130); Calcium 8.1 mg/dL (7.8-10.44); Carbon Dioxide 25 mmol/L (22-29); Chloride 102 mmol/L (98-107); Glucose 319 mg/dL (70-105); Potassium 4.4 mmol/L (3.5-5.1); Sodium 137 mmol/L (136-145)
[2020-12-12] MEDS: Cefepime 1 GM in Sodium Chloride 0.9% 100 ML IVPB SCH ×2 (05:25→16:59)
[2020-12-12] MEDS: Cholecalciferol (Vitamin D3) 400 UNITS TAB PO SCH (08:05)
[2020-12-12] MEDS: Doxycycline 100 MG CAP PO SCH ×2 (08:05→20:05)
[2020-12-12] MEDS: Insulin Glargine 30 UNITS in Pre-Filled Syringe 1 EACH SC SCH ×2 (08:05→21:02)
[2020-12-12] MEDS: Ascorbic Acid 500 mg Chewable Tablet PO SCH (08:05)
[2020-12-12] MEDS: Famotidine 20 MG TAB PO SCH ×2 (08:05→20:05)
[2020-12-12] MEDS: Zinc Sulfate 220 MG CAP PO SCH (08:05)
[2020-12-12] MEDS: Enoxaparin Sodium 40 MG/0.4 ML SYRINGE SC SCH ×2 (08:05→20:06)
[2020-12-12] MEDS: Lorazepam 2 MG/ML VIAL SLOW IVP PRN (12:04)
[2020-12-12] MEDS: ALPRAZolam 0.25 MG TAB PO SCH ×2 (15:44→20:05)
[2020-12-13 05:23] LABS: Anion Gap 16 mmol/L (10-20); BUN (Urea Nitrogen) 20 mg/dL (9.8-20.1); Calc. Creatinine Clearance 171 mL/min (70-130); Calcium 7.9 mg/dL (7.8-10.44); Carbon Dioxide 25 mmol/L (22-29); Chloride 101 mmol/L (98-107); Glucose 228 mg/dL (70-105); Potassium 4.6 mmol/L (3.5-5.1); Sodium 137 mmol/L (136-145)
[2020-12-13] MEDS: HumaLOG 300 UNITS/3 ML VIAL SC PRN (05:38)
[2020-12-13] MEDS: Cefepime 1 GM in Sodium Chloride 0.9% 100 ML IVPB SCH ×2 (05:39→17:42)
[2020-12-13] MEDS: methylPREDNISolone Sod Succ 40 MG VIAL IVP SCH ×3 (05:40→17:42)
[2020-12-13 06:22] LABS: Band 4 % (5-11); Lymphocytes 5 % (21-51); MDiff Complete? YES; Mean Corpuscular HGB CONC 32.9 g/dL (32.0-36.0); Mean Corpuscular Hemoglobin 31.5 pg (27.0-31.0); Mean Corpuscular Volume 95.7 fL (78.0-98.0); Mean Platelet Volume 9.7 fL (7.4-10.4); Neutrophil 91 % (42-75); Platelet Count 192 thou/uL (130-400); RBC Distribution Width 13.3 % (11.5-14.5); Red Blood Cell (RBC) Count 4.43 mill/uL (4.20-5.40); White Blood Cell (WBC) Count 19.9 thou/uL (4.8-10.8)
[2020-12-13] MEDS: Propofol 1,000 MG/100 ML VIAL IV PRN ×3 (06:26→23:00)
[2020-12-13] MEDS: Lorazepam 2 MG/ML VIAL SLOW IVP PRN (07:45)
[2020-12-13] MEDS: Fentanyl CADD 100 ML IV SCH (09:33)
[2020-12-13] MEDS: Ascorbic Acid 500 mg Chewable Tablet PO SCH (09:36)
[2020-12-13] MEDS: ALPRAZolam 0.25 MG TAB PO SCH ×3 (09:37→21:00)
[2020-12-13] MEDS: Cholecalciferol (Vitamin D3) 400 UNITS TAB PO SCH (09:37)
[2020-12-13] MEDS: Zinc Sulfate 220 MG CAP PO SCH (09:37)
[2020-12-13] MEDS: Insulin Glargine 30 UNITS in Pre-Filled Syringe 1 EACH SC SCH ×2 (09:37→21:03)
[2020-12-13] MEDS: Enoxaparin Sodium 40 MG/0.4 ML SYRINGE SC SCH ×2 (09:39→21:00)
[2020-12-13] MEDS: Famotidine 20 MG TAB PO SCH ×2 (09:41→21:00)
[2020-12-14] MEDS: methylPREDNISolone Sod Succ 40 MG VIAL IVP SCH ×5 (01:09→23:21)
[2020-12-14] MEDS ORDERED: Fentanyl CADD 100 ML ONE ×2 (01:21→19:47)
[2020-12-14] MEDS: Fentanyl CADD 100 ML IV SCH ×2 (01:24→19:51)
[2020-12-14 03:56] LABS: #Eosinphils 0.1 thou/uL (0.0-0.7); #Lymphocytes 0.8 thou/uL (1.20-3.40); #Monocytes 0.2 thou/uL (0.11-0.59); #Neutrophils 13.6 thou/uL (1.40-6.50); %Basophils 0.1 % (0.0-1.0); %Eosinophils 0.4 % (0.0-10.0); %Lymphocytes 5.5 % (21.0-51.0); %Monocytes 1.6 % (0.0-10.0); %Neutrophils 92.4 % (42.0-75.0); Hemoglobin 11.9 g/dL (12.0-16.0); Mean Corpuscular HGB CONC 33.6 g/dL (32.0-36.0); Mean Corpuscular Hemoglobin 32.1 pg (27.0-31.0); Mean Corpuscular Volume 95.7 fL (78.0-98.0); Mean Platelet Volume 9.7 fL (7.4-10.4); Platelet Count 167 thou/uL (130-400); RBC Distribution Width 13.2 % (11.5-14.5); Red Blood Cell (RBC) Count 3.71 mill/uL (4.20-5.40); White Blood Cell (WBC) Count 14.7 thou/uL (4.8-10.8)
[2020-12-14 04:14] LABS: Anion Gap 11 mmol/L (10-20); BUN (Urea Nitrogen) 16 mg/dL (9.8-20.1); Calc. Creatinine Clearance 193 mL/min (70-130); Calcium 7.4 mg/dL (7.8-10.44); Carbon Dioxide 28 mmol/L (22-29); Chloride 102 mmol/L (98-107); Glucose 158 mg/dL (70-105); Potassium 4.1 mmol/L (3.5-5.1); Sodium 137 mmol/L (136-145)
[2020-12-14] MEDS: Cefepime 1 GM in Sodium Chloride 0.9% 100 ML IVPB SCH (04:39)
[2020-12-14] MEDS: Propofol 1,000 MG/100 ML VIAL IV PRN ×4 (04:39→23:23)
[2020-12-14] MEDS: Enoxaparin Sodium 40 MG/0.4 ML SYRINGE SC SCH ×2 (09:00→20:56)
[2020-12-14] MEDS: Insulin Glargine 30 UNITS in Pre-Filled Syringe 1 EACH SC SCH ×2 (09:01→20:56)
[2020-12-14] MEDS: Ascorbic Acid 500 mg Chewable Tablet PO SCH (09:02)
[2020-12-14] MEDS: Cholecalciferol (Vitamin D3) 400 UNITS TAB PO SCH (09:03)
[2020-12-14] MEDS: ALPRAZolam 0.25 MG TAB PO SCH ×4 (09:03→20:56)
[2020-12-14] MEDS: Famotidine 20 MG TAB PO SCH ×2 (09:04→20:56)
[2020-12-14] MEDS: Zinc Sulfate 220 MG CAP PO SCH (09:38)
[2020-12-14] MEDS: HumaLOG 300 UNITS/3 ML VIAL SC PRN (16:53)
[2020-12-14] MEDS: Propofol BOLUS 1,000 MG/100 ML VIAL IV PRN (23:00)
[2020-12-15] MEDS: Propofol BOLUS 1,000 MG/100 ML VIAL IV PRN (02:58)
[2020-12-15] MEDS: Propofol 1,000 MG/100 ML VIAL IV PRN ×4 (03:29→23:44)
[2020-12-15] MEDS: HumaLOG 300 UNITS/3 ML VIAL SC PRN ×2 (04:05→16:15)
[2020-12-15 04:21] LABS: #Lymphocytes 0.6 thou/uL (1.20-3.40); #Monocytes 0.3 thou/uL (0.11-0.59); #Neutrophils 14.3 thou/uL (1.40-6.50); %Eosinophils 0.2 % (0.0-10.0); %Monocytes 1.6 % (0.0-10.0); %Neutrophils 94.1 % (42.0-75.0); Hemoglobin 12.2 g/dL (12.0-16.0); Mean Corpuscular HGB CONC 32.7 g/dL (32.0-36.0); Mean Corpuscular Hemoglobin 31.2 pg (27.0-31.0); Mean Corpuscular Volume 95.4 fL (78.0-98.0); Mean Platelet Volume 9.7 fL (7.4-10.4); Platelet Count 169 thou/uL (130-400); RBC Distribution Width 13.3 % (11.5-14.5); Red Blood Cell (RBC) Count 3.93 mill/uL (4.20-5.40); White Blood Cell (WBC) Count 15.2 thou/uL (4.8-10.8)
[2020-12-15 05:03] LABS: Anion Gap 12 mmol/L (10-20); BUN (Urea Nitrogen) 16 mg/dL (9.8-20.1); Calc. Creatinine Clearance 178 mL/min (70-130); Calcium 7.7 mg/dL (7.8-10.44); Carbon Dioxide 28 mmol/L (22-29); Chloride 100 mmol/L (98-107); Glucose 263 mg/dL (70-105); Potassium 3.9 mmol/L (3.5-5.1); Sodium 136 mmol/L (136-145)
[2020-12-15] MEDS: methylPREDNISolone Sod Succ 40 MG VIAL IVP SCH ×4 (05:50→22:58)
[2020-12-15] MEDS: Enoxaparin Sodium 40 MG/0.4 ML SYRINGE SC SCH ×2 (09:10→22:58)
[2020-12-15] MEDS: Famotidine 20 MG TAB PO SCH ×2 (09:10→22:58)
[2020-12-15] MEDS: ALPRAZolam 0.25 MG TAB PO SCH ×3 (09:11→23:02)
[2020-12-15] MEDS: Insulin Glargine 30 UNITS in Pre-Filled Syringe 1 EACH SC SCH ×2 (09:11→22:59)
[2020-12-15] MEDS: Zinc Sulfate 220 MG CAP PO SCH (09:11)
[2020-12-15] MEDS: Cholecalciferol (Vitamin D3) 400 UNITS TAB PO SCH (09:11)
[2020-12-15] MEDS: Ascorbic Acid 500 mg Chewable Tablet PO SCH (09:11)
[2020-12-15] MEDS ORDERED: Succinylcholine 200 MG/10 ml SYRINGE FS ONE (09:45)
[2020-12-15] MEDS ORDERED: EPINEPHrine 1 MG/10 ML Abboject SYRINGE ONE (10:15)
[2020-12-15] MEDS ORDERED: EPINEPHrine 1 MG/10 ML Abboject SYRINGE IVP SCH ×2 (19:40)
[2020-12-15 19:46] LABS: Actual Bicarbonate (HCO3a) 18.4 mEq/L (22-28); Carboxyhemoglobin (COHb) 0.7 gm% (0.0-3.0); Hemoglobin (Hb) 13.4 g/dL (12.0-16.0); Potassium - ABG Lab 4.98 mmol/L (3.70-5.30)
[2020-12-15 19:54] LABS: #Basophils 0.1 thou/uL (0.0-0.2); #Eosinphils 0.1 thou/uL (0.0-0.7); #Lymphocytes 2.7 thou/uL (1.20-3.40); #Monocytes 0.2 thou/uL (0.11-0.59); #Neutrophils 16.3 thou/uL (1.40-6.50); %Basophils 0.3 % (0.0-1.0); %Eosinophils 0.4 % (0.0-10.0); %Lymphocytes 14.1 % (21.0-51.0); %Monocytes 1.2 % (0.0-10.0); Hemoglobin 13.5 g/dL (12.0-16.0); Mean Corpuscular HGB CONC 32.7 g/dL (32.0-36.0); Mean Corpuscular Hemoglobin 32.4 pg (27.0-31.0); Mean Corpuscular Volume 99.2 fL (78.0-98.0); Mean Platelet Volume 9.2 fL (7.4-10.4); Platelet Count 193 thou/uL (130-400); RBC Distribution Width 13.6 % (11.5-14.5); Red Blood Cell (RBC) Count 4.15 mill/uL (4.20-5.40); White Blood Cell (WBC) Count 19.4 thou/uL (4.8-10.8)
[2020-12-15] MEDS ORDERED: Sodium Bicarb 50 MEQ/50 ML Abboject 8.4% SYRINGE IVP SCH (19:55)
[2020-12-15] MEDS: Norepinephrine 8 MG/0.9% NS 250 ML IVPB SCH ×2 (19:55→23:00)
[2020-12-15 20:11] LABS: ALT (SGPT) 194 U/L (8-55); AST (SGOT) 111 U/L (5-34); Albumin 2.7 g/dL (3.5-5.0); Alkaline Phosphatase 86 U/L (40-110); Anion Gap 20 mmol/L (10-20); BUN (Urea Nitrogen) 17 mg/dL (9.8-20.1); Bilirubin, Total 0.6 mg/dL (0.2-1.2); Calc. Creatinine Clearance 130 mL/min (70-130); Calcium 7.7 mg/dL (7.8-10.44); Carbon Dioxide 23 mmol/L (22-29); Globulin 3.3 g/dL (2.4-3.5); Glucose 298 mg/dL (70-105); Magnesium 2.5 mg/dL (1.6-2.6); Phosphorus 4.3 mg/dL (2.3-4.7); Potassium 4.1 mmol/L (3.5-5.1); Sodium 139 mmol/L (136-145)
[2020-12-15 20:33] LABS: Chloride 100 mmol/L (98-107)
[2020-12-15 21:08] LABS: CO2 Tension 69.2 mmHg (35.0-45.0); O2 Tension (PaO2), arterial 23.4 mmHg (80.0-100.0); pH, Arterial 7.04 (7.35-7.45)
[2020-12-15 21:09] LABS: Puncture Site LFA
[2020-12-15 21:11] LABS: Actual Bicarbonate (HCO3a) 14.8 mEq/L (22-28); Base Excess (BEa) -16.6 mEq/L (-2.0 to +3.0); Calcium, Ionized (arterial) 1.03 mmol/L (1.12-1.30); Carboxyhemoglobin (COHb) 0.8 gm% (0.0-3.0); Hemoglobin (Hb) 12.2 g/dL (12.0-16.0); Potassium - ABG Lab 3.77 mmol/L (3.70-5.30)
[2020-12-15 21:12] LABS: O2 Tension (PaO2), arterial 27.7 mmHg (80.0-100.0)
[2020-12-15 21:13] LABS: Puncture Site Arterial Line
[2020-12-15] MEDS: Sodium Bicarbonate 140 MEQ in Dextrose 5% in Water 1,000 ML IV SCH (23:03)
[2020-12-15] MEDS ORDERED: Fentanyl CADD 100 ML ONE (23:35)
[2020-12-15] MEDS: Fentanyl CADD 100 ML IV SCH (23:40)
[2020-12-16 03:52] LABS: Anion Gap 14 mmol/L (10-20); BUN (Urea Nitrogen) 20 mg/dL (9.8-20.1); Calc. Creatinine Clearance 145 mL/min (70-130); Calcium 6.9 mg/dL (7.8-10.44); Carbon Dioxide 27 mmol/L (22-29); Chloride 102 mmol/L (98-107); Glucose 338 mg/dL (70-105); Potassium 3.4 mmol/L (3.5-5.1); Sodium 140 mmol/L (136-145)
[2020-12-16 03:57] LABS: Mean Corpuscular HGB CONC 33.3 g/dL (32.0-36.0); Mean Corpuscular Hemoglobin 32.2 pg (27.0-31.0); Mean Corpuscular Volume 96.6 fL (78.0-98.0); Platelet Count 196 thou/uL (130-400); RBC Distribution Width 13.7 % (11.5-14.5); Red Blood Cell (RBC) Count 4.03 mill/uL (4.20-5.40)
[2020-12-16 03:58] LABS: Band 32 % (5-11); Lymphocytes 1 % (21-51); MDiff Complete? YES; Monocytes 2 % (0-10); Myelocyte 1 % (0-0); Neutrophil 64 % (42-75)
[2020-12-16] MEDS: Propofol 1,000 MG/100 ML VIAL IV PRN ×5 (04:18→23:56)
[2020-12-16] MEDS: HumaLOG 300 UNITS/3 ML VIAL SC PRN ×2 (04:36→22:24)
[2020-12-16] MEDS: methylPREDNISolone Sod Succ 40 MG VIAL IVP SCH ×4 (05:12→23:25)
[2020-12-16] MEDS ORDERED: Electrolyte Replacement Protocol 1 EACH FS PRN (05:20)
[2020-12-16] MEDS ORDERED: Potassium Chloride 20 MEQ TAB PO SCH ×2 (05:30→07:30)
[2020-12-16] MEDS: Enoxaparin Sodium 40 MG/0.4 ML SYRINGE SC SCH ×2 (09:20→20:33)
[2020-12-16] MEDS: Insulin Glargine 30 UNITS in Pre-Filled Syringe 1 EACH SC SCH ×2 (09:20→20:50)
[2020-12-16] MEDS: ALPRAZolam 0.25 MG TAB PO SCH ×3 (09:57→21:00)
[2020-12-16] MEDS: Ascorbic Acid 500 mg Chewable Tablet PO SCH (09:57)
[2020-12-16] MEDS: Cholecalciferol (Vitamin D3) 400 UNITS TAB PO SCH (09:58)
[2020-12-16] MEDS: Famotidine 20 MG TAB PO SCH ×2 (09:58→20:34)
[2020-12-16 10:01] LABS: Magnesium 1.9 mg/dL (1.6-2.6); Potassium 3.7 mmol/L (3.5-5.1)
[2020-12-16] MEDS: Zinc Sulfate 220 MG CAP PO SCH (10:20)
[2020-12-16] MEDS ORDERED: Magnesium 2 GM/50 ML 2 GM in Premix Bag 1 BAG IVPB SCH (10:30)
[2020-12-16] MEDS: Sodium Bicarbonate 140 MEQ in Dextrose 5% in Water 1,000 ML IV SCH (13:15)
[2020-12-16] MEDS: Acetaminophen 325 MG TAB PO PRN (20:33)
[2020-12-16] MEDS: Norepinephrine 8 MG/0.9% NS 250 ML IVPB SCH (20:52)
[2020-12-17] MEDS ORDERED: Fentanyl CADD 100 ML ONE (02:29)
[2020-12-17] MEDS: Fentanyl CADD 100 ML IV SCH (02:35)
[2020-12-17] MEDS: Sodium Bicarbonate 140 MEQ in Dextrose 5% in Water 1,000 ML IV SCH ×2 (02:40→17:31)
[2020-12-17] MEDS: HumaLOG 300 UNITS/3 ML VIAL SC PRN (03:30)
[2020-12-17] MEDS: Propofol 1,000 MG/100 ML VIAL IV PRN ×6 (03:55→21:22)
[2020-12-17 04:08] LABS: Anion Gap 14 mmol/L (10-20); BUN (Urea Nitrogen) 15 mg/dL (9.8-20.1); Calc. Creatinine Clearance 179 mL/min (70-130); Calcium 7.4 mg/dL (7.8-10.44); Carbon Dioxide 35 mmol/L (22-29); Chloride 93 mmol/L (98-107); Glucose 231 mg/dL (70-105); Sodium 139 mmol/L (136-145)
[2020-12-17 04:25] LABS: #Basophils 0.1 thou/uL (0.0-0.2); #Lymphocytes 0.6 thou/uL (1.20-3.40); #Monocytes 0.2 thou/uL (0.11-0.59); #Neutrophils 11.1 thou/uL (1.40-6.50); %Basophils 0.4 % (0.0-1.0); %Eosinophils 0.3 % (0.0-10.0); %Lymphocytes 4.9 % (21.0-51.0); %Monocytes 1.5 % (0.0-10.0); Hemoglobin 11.6 g/dL (12.0-16.0); Mean Corpuscular HGB CONC 32.8 g/dL (32.0-36.0); Mean Corpuscular Hemoglobin 31.9 pg (27.0-31.0); Mean Corpuscular Volume 97.1 fL (78.0-98.0); Mean Platelet Volume 8.8 fL (7.4-10.4); Platelet Count 105 thou/uL (130-400); Platelet Morphology Comment Appears Decreased; RBC Distribution Width 13.6 % (11.5-14.5); Red Blood Cell (RBC) Count 3.66 mill/uL (4.20-5.40); White Blood Cell (WBC) Count 11.9 thou/uL (4.8-10.8)
[2020-12-17] MEDS: methylPREDNISolone Sod Succ 40 MG VIAL IVP SCH ×4 (05:00→23:37)
[2020-12-17] MEDS ORDERED: Potassium Chloride 40 MEQ in Premix Bag 1 BAG IVPB SCH ×2 (05:00→11:45)
[2020-12-17] MEDS ORDERED: Potassium Chloride 20 MEQ TAB PO SCH (08:30)
[2020-12-17] MEDS: Ascorbic Acid 500 mg Chewable Tablet PO SCH (09:17)
[2020-12-17] MEDS: Cholecalciferol (Vitamin D3) 400 UNITS TAB PO SCH (09:17)
[2020-12-17] MEDS: Zinc Sulfate 220 MG CAP PO SCH (09:17)
[2020-12-17] MEDS: Famotidine 20 MG TAB PO SCH ×2 (09:17→21:18)
[2020-12-17] MEDS: ALPRAZolam 0.25 MG TAB PO SCH ×3 (09:18→21:00)
[2020-12-17] MEDS ORDERED: Laxative Of Choice PO PRN (09:27)
[2020-12-17] MEDS: Enoxaparin Sodium 40 MG/0.4 ML SYRINGE SC SCH ×2 (09:30→21:18)
[2020-12-17] MEDS: Insulin Glargine 30 UNITS in Pre-Filled Syringe 1 EACH SC SCH ×2 (09:30→21:18)
[2020-12-17 11:14] LABS: Potassium 3.3 mmol/L (3.5-5.1)
[2020-12-17] MEDS: Polyethylene Glycol 3350 17 GM Packet PO PRN (17:30)
[2020-12-17 19:29] LABS: Potassium 4.1 mmol/L (3.5-5.1)
[2020-12-17] MEDS: risperiDONE 0.25 MG TAB PO SCH (21:18)
[2020-12-18] MEDS: Propofol 1,000 MG/100 ML VIAL IV PRN ×7 (00:22→23:08)
[2020-12-18] MEDS ORDERED: Fentanyl CADD 100 ML ONE (00:41)
[2020-12-18] MEDS: Fentanyl CADD 100 ML IV SCH ×2 (00:45→15:37)
[2020-12-18] MEDS: Acetaminophen 325 MG TAB PO PRN ×3 (01:45→17:55)
[2020-12-18] MEDS: ALPRAZolam 0.25 MG TAB PO SCH ×4 (02:13→21:32)
[2020-12-18 03:45] LABS: #Lymphocytes 0.3 thou/uL (1.20-3.40); #Monocytes 0.1 thou/uL (0.11-0.59); #Neutrophils 5.9 thou/uL (1.40-6.50); %Basophils 0.4 % (0.0-1.0); %Lymphocytes 3.9 % (21.0-51.0); %Monocytes 1.3 % (0.0-10.0); %Neutrophils 94.3 % (42.0-75.0); Hemoglobin 10.3 g/dL (12.0-16.0); Mean Corpuscular HGB CONC 32.3 g/dL (32.0-36.0); Mean Corpuscular Hemoglobin 32.1 pg (27.0-31.0); Mean Corpuscular Volume 99.2 fL (78.0-98.0); Platelet Count 87 thou/uL (130-400); RBC Distribution Width 13.8 % (11.5-14.5); Red Blood Cell (RBC) Count 3.23 mill/uL (4.20-5.40); White Blood Cell (WBC) Count 6.2 thou/uL (4.8-10.8)
[2020-12-18 04:03] LABS: BUN (Urea Nitrogen) 19 mg/dL (9.8-20.1); Calc. Creatinine Clearance 194 mL/min (70-130); Calcium 7.7 mg/dL (7.8-10.44); Glucose 267 mg/dL (70-105)
[2020-12-18 04:12] LABS: Anion Gap 20 mmol/L (10-20); Carbon Dioxide 34 mmol/L (22-29); Chloride 92 mmol/L (98-107); Potassium 3.8 mmol/L (3.5-5.1); Sodium 142 mmol/L (136-145)
[2020-12-18] MEDS: HumaLOG 300 UNITS/3 ML VIAL SC PRN ×2 (04:26→11:46)
[2020-12-18] MEDS: methylPREDNISolone Sod Succ 40 MG VIAL IVP SCH ×4 (05:44→23:08)
[2020-12-18] MEDS: Famotidine 20 MG TAB PO SCH ×2 (09:01→21:32)
[2020-12-18] MEDS: Cholecalciferol (Vitamin D3) 400 UNITS TAB PO SCH (09:01)
[2020-12-18] MEDS: risperiDONE 0.25 MG TAB PO SCH ×3 (09:01→21:32)
[2020-12-18] MEDS: Zinc Sulfate 220 MG CAP PO SCH (09:01)
[2020-12-18] MEDS: Ascorbic Acid 500 mg Chewable Tablet PO SCH (09:02)
[2020-12-18] MEDS: Enoxaparin Sodium 40 MG/0.4 ML SYRINGE SC SCH ×2 (09:02→21:33)
[2020-12-18] MEDS: Insulin Glargine 30 UNITS in Pre-Filled Syringe 1 EACH SC SCH ×2 (09:03→22:49)
[2020-12-18] MEDS ORDERED: Furosemide 20 MG/2 ML VIAL IVP SCH (09:15)
[2020-12-18] MEDS: Sodium Chloride 0.9% 1,000 ML IV SCH (09:30)
[2020-12-18] MEDS ORDERED: risperiDONE 0.25 MG TAB PO SCH (09:30)
[2020-12-18] MEDS: Linezolid 600 MG in Premix Bag 1 BAG IVPB SCH (17:02)
[2020-12-18] MEDS: MEROPENEM 1 GM/50 ML 1 GM in Premix Bag 1 BAG IVPB SCH (17:54)
[2020-12-18] MEDS: Norepinephrine 8 MG/0.9% NS 250 ML IVPB SCH (23:37)
[2020-12-19] MEDS: MEROPENEM 1 GM/50 ML 1 GM in Premix Bag 1 BAG IVPB SCH ×3 (01:28→16:44)
[2020-12-19] MEDS: Sodium Chloride 0.9% 1,000 ML IV SCH (03:49)
[2020-12-19 04:36] LABS: BUN (Urea Nitrogen) 13 mg/dL (9.8-20.1); Calc. Creatinine Clearance 216 mL/min (70-130); Calcium 8.1 mg/dL (7.8-10.44); Glucose 74 mg/dL (70-105)
[2020-12-19 04:46] LABS: Anion Gap 17 mmol/L (10-20); Carbon Dioxide 36 mmol/L (22-29); Chloride 97 mmol/L (98-107); Sodium 147 mmol/L (136-145)
[2020-12-19 04:47] LABS: Potassium 2.7 mmol/L (3.5-5.1)
[2020-12-19] MEDS ORDERED: Fentanyl CADD 100 ML ONE ×2 (05:04→15:36)
[2020-12-19] MEDS: Potassium Bicarbonate/Cit Ac 20 MEQ TAB PO SCH ×2 (05:20→11:01)
[2020-12-19] MEDS: Linezolid 600 MG in Premix Bag 1 BAG IVPB SCH ×2 (05:21→16:48)
[2020-12-19] MEDS: methylPREDNISolone Sod Succ 40 MG VIAL IVP SCH ×3 (05:21→16:49)
[2020-12-19 05:22] LABS: Band 35 % (5-11); Hemoglobin 11.5 g/dL (12.0-16.0); Lymphocytes 21 % (21-51); MDiff Complete? YES; Mean Corpuscular Hemoglobin 32.4 pg (27.0-31.0); Mean Corpuscular Volume 98.2 fL (78.0-98.0); Mean Platelet Volume 9.3 fL (7.4-10.4); Metamyelocyte 14 % (0-0); Monocytes 2 % (0-10); Myelocyte 10 % (0-0); Neutrophil 18 % (42-75); Platelet Count 88 thou/uL (130-400); Platelet Morphology Comment Appears Decreased; RBC Distribution Width 13.9 % (11.5-14.5); Red Blood Cell (RBC) Count 3.55 mill/uL (4.20-5.40); White Blood Cell (WBC) Count 3.5 thou/uL (4.8-10.8)
[2020-12-19] MEDS: Propofol 1,000 MG/100 ML VIAL IV PRN ×3 (05:50→21:30)
[2020-12-19] MEDS: Ascorbic Acid 500 mg Chewable Tablet PO SCH (08:55)
[2020-12-19] MEDS: Zinc Sulfate 220 MG CAP PO SCH (08:55)
[2020-12-19] MEDS: Cholecalciferol (Vitamin D3) 400 UNITS TAB PO SCH (08:55)
[2020-12-19] MEDS: Famotidine 20 MG TAB PO SCH ×2 (08:55→20:00)
[2020-12-19] MEDS: Enoxaparin Sodium 40 MG/0.4 ML SYRINGE SC SCH ×2 (08:55→20:00)
[2020-12-19] MEDS: ALPRAZolam 0.25 MG TAB PO SCH ×3 (08:55→20:03)
[2020-12-19] MEDS: risperiDONE 0.25 MG TAB PO SCH ×2 (08:56→20:12)
[2020-12-19] MEDS: Insulin Glargine 30 UNITS in Pre-Filled Syringe 1 EACH SC SCH ×2 (10:57→20:02)
[2020-12-19 15:22] LABS: Potassium 3.3 mmol/L (3.5-5.1)
[2020-12-19] MEDS: Fentanyl CADD 100 ML IV SCH (16:56)
[2020-12-19] MEDS: HumaLOG 300 UNITS/3 ML VIAL SC PRN (23:42)
[2020-12-20] MEDS: methylPREDNISolone Sod Succ 40 MG VIAL IVP SCH ×4 (00:01→18:10)
[2020-12-20] MEDS: Propofol 1,000 MG/100 ML VIAL IV PRN ×2 (03:17→17:53)
[2020-12-20] MEDS: Sodium Chloride 0.9% 1,000 ML IV SCH ×2 (03:19→21:02)
[2020-12-20 04:27] LABS: Anion Gap 11 mmol/L (10-20); BUN (Urea Nitrogen) 16 mg/dL (9.8-20.1); Calc. Creatinine Clearance 203 mL/min (70-130); Calcium 7.8 mg/dL (7.8-10.44); Carbon Dioxide 35 mmol/L (22-29); Chloride 98 mmol/L (98-107); Glucose 161 mg/dL (70-105); Potassium 3.4 mmol/L (3.5-5.1); Sodium 141 mmol/L (136-145)
[2020-12-20 04:41] LABS: Band 50 % (5-11); Hemoglobin 10.2 g/dL (12.0-16.0); Hypochromia SLIGHT = 6-15 cells (100X) (0-5/hpf); Lymphocytes 4 % (21-51); MDiff Complete? YES; Mean Corpuscular HGB CONC 32.8 g/dL (32.0-36.0); Mean Corpuscular Volume 97.5 fL (78.0-98.0); Mean Platelet Volume 9.1 fL (7.4-10.4); Monocytes 2 % (0-10); Neutrophil 44 % (42-75); Platelet Count 81 thou/uL (130-400); Platelet Morphology Comment Appears Decreased; RBC Distribution Width 14.1 % (11.5-14.5); Red Blood Cell (RBC) Count 3.17 mill/uL (4.20-5.40); White Blood Cell (WBC) Count 4.6 thou/uL (4.8-10.8)
[2020-12-20] MEDS: Linezolid 600 MG in Premix Bag 1 BAG IVPB SCH (05:23)
[2020-12-20] MEDS: Norepinephrine 8 MG/0.9% NS 250 ML IVPB SCH (05:24)
[2020-12-20] MEDS ORDERED: Fentanyl CADD 100 ML ONE ×2 (06:01→19:27)
[2020-12-20] MEDS ORDERED: Potassium Bicarbonate/Cit Ac 20 MEQ TAB PO SCH (06:30)
[2020-12-20] MEDS: MEROPENEM 1 GM/50 ML 1 GM in Premix Bag 1 BAG IVPB SCH ×2 (10:15)
[2020-12-20] MEDS: Enoxaparin Sodium 40 MG/0.4 ML SYRINGE SC SCH ×2 (10:15→20:53)
[2020-12-20] MEDS: Ascorbic Acid 500 mg Chewable Tablet PO SCH (10:15)
[2020-12-20] MEDS: Famotidine 20 MG TAB PO SCH ×2 (10:15→20:52)
[2020-12-20] MEDS: ALPRAZolam 0.25 MG TAB PO SCH ×3 (10:15→20:52)
[2020-12-20] MEDS: Zinc Sulfate 220 MG CAP PO SCH (10:15)
[2020-12-20] MEDS: risperiDONE 0.25 MG TAB PO SCH ×2 (11:08→20:52)
[2020-12-20] MEDS: Insulin Glargine 30 UNITS in Pre-Filled Syringe 1 EACH SC SCH ×2 (11:19→20:52)
[2020-12-20] MEDS: HumaLOG 300 UNITS/3 ML VIAL SC PRN ×2 (11:20→18:00)
[2020-12-20] MEDS: CEFAZOLIN 2 GM in Premix Bag 1 BAG IVPB SCH (16:53)
[2020-12-20] MEDS: Cholecalciferol (Vitamin D3) 400 UNITS TAB PO SCH (17:52)
[2020-12-20] MEDS: Fentanyl CADD 100 ML IV SCH (18:10)
[2020-12-21] MEDS: HumaLOG 300 UNITS/3 ML VIAL SC PRN (00:14)
[2020-12-21] MEDS: CEFAZOLIN 2 GM in Premix Bag 1 BAG IVPB SCH ×4 (00:20→23:40)
[2020-12-21] MEDS: methylPREDNISolone Sod Succ 40 MG VIAL IVP SCH ×5 (00:20→23:41)
[2020-12-21 04:31] LABS: Anion Gap 12 mmol/L (10-20); BUN (Urea Nitrogen) 19 mg/dL (9.8-20.1); Calc. Creatinine Clearance 213 mL/min (70-130); Calcium 7.6 mg/dL (7.8-10.44); Carbon Dioxide 32 mmol/L (22-29); Chloride 98 mmol/L (98-107); Glucose 177 mg/dL (70-105); Potassium 3.4 mmol/L (3.5-5.1); Sodium 139 mmol/L (136-145)
[2020-12-21] MEDS: Propofol 1,000 MG/100 ML VIAL IV PRN ×4 (05:16→23:48)
[2020-12-21 06:04] LABS: Band 1 % (5-11); Hemoglobin 9.6 g/dL (12.0-16.0); Lymphocytes 9 % (21-51); MDiff Complete? YES; Mean Corpuscular HGB CONC 31.8 g/dL (32.0-36.0); Mean Corpuscular Hemoglobin 30.7 pg (27.0-31.0); Mean Corpuscular Volume 96.6 fL (78.0-98.0); Mean Platelet Volume 9.2 fL (7.4-10.4); Metamyelocyte 1 % (0-0); Neutrophil 89 % (42-75); Platelet Count 90 thou/uL (130-400); Platelet Morphology Comment Appears Decreased; RBC Distribution Width 14.1 % (11.5-14.5); RBC Morphology Normal; Red Blood Cell (RBC) Count 3.13 mill/uL (4.20-5.40); White Blood Cell (WBC) Count 5.1 thou/uL (4.8-10.8)
[2020-12-21] MEDS ORDERED: Potassium Chloride 20 MEQ TAB PO SCH (06:30)
[2020-12-21] MEDS ORDERED: Fentanyl CADD 100 ML ONE ×2 (06:43→15:23)
[2020-12-21] MEDS: Fentanyl CADD 100 ML IV SCH (06:47)
[2020-12-21] MEDS: Polyethylene Glycol 3350 17 GM Packet PO PRN (08:06)
[2020-12-21] MEDS: Insulin Glargine 30 UNITS in Pre-Filled Syringe 1 EACH SC SCH ×2 (09:39→21:40)
[2020-12-21] MEDS: Famotidine 20 MG TAB PO SCH ×2 (09:49→21:40)
[2020-12-21] MEDS: Ascorbic Acid 500 mg Chewable Tablet PO SCH (09:50)
[2020-12-21] MEDS: Enoxaparin Sodium 40 MG/0.4 ML SYRINGE SC SCH ×2 (09:50→21:37)
[2020-12-21] MEDS: ALPRAZolam 0.25 MG TAB PO SCH ×3 (09:50→21:40)
[2020-12-21] MEDS: Cholecalciferol (Vitamin D3) 400 UNITS TAB PO SCH (09:50)
[2020-12-21] MEDS: Zinc Sulfate 220 MG CAP PO SCH (09:50)
[2020-12-21] MEDS: risperiDONE 0.25 MG TAB PO SCH ×2 (09:52→21:37)
[2020-12-21] MEDS: Sodium Chloride 0.9% 1,000 ML IV SCH (21:37)
[2020-12-22] MEDS ORDERED: Fentanyl CADD 100 ML ONE ×2 (02:25→11:00)
[2020-12-22] MEDS: Fentanyl CADD 100 ML IV SCH ×2 (02:29→13:27)
[2020-12-22 04:14] LABS: Anion Gap 13 mmol/L (10-20); BUN (Urea Nitrogen) 19 mg/dL (9.8-20.1); Calc. Creatinine Clearance 207 mL/min (70-130); Calcium 7.8 mg/dL (7.8-10.44); Carbon Dioxide 29 mmol/L (22-29); Chloride 99 mmol/L (98-107); Glucose 183 mg/dL (70-105); Potassium 4.1 mmol/L (3.5-5.1); Sodium 137 mmol/L (136-145)
[2020-12-22 04:24] LABS: Hemoglobin 10.6 g/dL (12.0-16.0); Mean Corpuscular HGB CONC 32.4 g/dL (32.0-36.0); Mean Corpuscular Hemoglobin 31.2 pg (27.0-31.0); Mean Corpuscular Volume 96.3 fL (78.0-98.0); Mean Platelet Volume 9.2 fL (7.4-10.4); Platelet Count 93 thou/uL (130-400); RBC Distribution Width 14.1 % (11.5-14.5); Red Blood Cell (RBC) Count 3.39 mill/uL (4.20-5.40); White Blood Cell (WBC) Count 5.8 thou/uL (4.8-10.8)
[2020-12-22 04:25] LABS: Band 25 % (5-11); Hypochromia SLIGHT = 6-15 cells (100X) (0-5/hpf); Lymphocytes 10 % (21-51); MDiff Complete? YES; Monocytes 2 % (0-10); Neutrophil 63 % (42-75); Platelet Morphology Comment Appears Decreased
[2020-12-22] MEDS: methylPREDNISolone Sod Succ 40 MG VIAL IVP SCH ×4 (05:05→23:19)
[2020-12-22] MEDS: Propofol 1,000 MG/100 ML VIAL IV PRN ×4 (05:19→21:06)
[2020-12-22] MEDS: Enoxaparin Sodium 40 MG/0.4 ML SYRINGE SC SCH ×2 (09:16→21:05)
[2020-12-22] MEDS: Cholecalciferol (Vitamin D3) 400 UNITS TAB PO SCH (09:17)
[2020-12-22] MEDS: Famotidine 20 MG TAB PO SCH ×2 (09:17→21:05)
[2020-12-22] MEDS: Zinc Sulfate 220 MG CAP PO SCH (09:17)
[2020-12-22] MEDS: Ascorbic Acid 500 mg Chewable Tablet PO SCH (09:18)
[2020-12-22] MEDS: Insulin Glargine 30 UNITS in Pre-Filled Syringe 1 EACH SC SCH ×2 (09:18→21:04)
[2020-12-22] MEDS: risperiDONE 0.25 MG TAB PO SCH ×2 (09:18→21:05)
[2020-12-22] MEDS: ALPRAZolam 0.25 MG TAB PO SCH ×2 (09:19→15:32)
[2020-12-22] MEDS: CEFAZOLIN 2 GM in Premix Bag 1 BAG IVPB SCH ×3 (09:19→23:20)
[2020-12-22] MEDS: Sodium Chloride 0.9% 1,000 ML IV SCH (12:45)
[2020-12-22] MEDS ORDERED: ALPRAZolam 0.25 MG TAB PO SCH (15:30)
[2020-12-23] MEDS ORDERED: Fentanyl CADD 100 ML ONE ×2 (00:47→12:51)
[2020-12-23] MEDS: Fentanyl CADD 100 ML IV SCH ×2 (00:55→12:53)
[2020-12-23] MEDS: Propofol 1,000 MG/100 ML VIAL IV PRN ×5 (01:57→21:54)
[2020-12-23 04:24] LABS: Anion Gap 12 mmol/L (10-20); BUN (Urea Nitrogen) 11 mg/dL (9.8-20.1); Calc. Creatinine Clearance 235 mL/min (70-130); Calcium 7.6 mg/dL (7.8-10.44); Carbon Dioxide 31 mmol/L (22-29); Chloride 101 mmol/L (98-107); Glucose 113 mg/dL (70-105); Potassium 3.9 mmol/L (3.5-5.1); Sodium 140 mmol/L (136-145)
[2020-12-23 04:31] LABS: Band 13 % (5-11); Eosinophils 4 % (0-10); Hemoglobin 10.9 g/dL (12.0-16.0); Lymphocytes 11 % (21-51); MDiff Complete? YES; Mean Corpuscular HGB CONC 32.8 g/dL (32.0-36.0); Mean Corpuscular Hemoglobin 31.4 pg (27.0-31.0); Mean Corpuscular Volume 95.6 fL (78.0-98.0); Mean Platelet Volume 8.7 fL (7.4-10.4); Metamyelocyte 1 % (0-0); Monocytes 6 % (0-10); Neutrophil 65 % (42-75); Platelet Count 103 thou/uL (130-400); Platelet Morphology Comment Appears Decreased; RBC Distribution Width 13.9 % (11.5-14.5); Red Blood Cell (RBC) Count 3.47 mill/uL (4.20-5.40); White Blood Cell (WBC) Count 5.6 thou/uL (4.8-10.8)
[2020-12-23] MEDS: methylPREDNISolone Sod Succ 40 MG VIAL IVP SCH ×3 (05:48→18:28)
[2020-12-23] MEDS: CEFAZOLIN 2 GM in Premix Bag 1 BAG IVPB SCH ×2 (10:12→16:18)
[2020-12-23] MEDS: Enoxaparin Sodium 40 MG/0.4 ML SYRINGE SC SCH ×2 (10:13→21:47)
[2020-12-23] MEDS: Famotidine 20 MG TAB PO SCH ×2 (10:13→21:47)
[2020-12-23] MEDS: Cholecalciferol (Vitamin D3) 400 UNITS TAB PO SCH (10:13)
[2020-12-23] MEDS: risperiDONE 0.25 MG TAB PO SCH ×2 (10:14→21:51)
[2020-12-23] MEDS: Insulin Glargine 30 UNITS in Pre-Filled Syringe 1 EACH SC SCH ×2 (10:14→21:47)
[2020-12-23] MEDS: Zinc Sulfate 220 MG CAP PO SCH (10:16)
[2020-12-23] MEDS: Ascorbic Acid 500 mg Chewable Tablet PO SCH (10:20)
[2020-12-23] MEDS: Sodium Chloride 0.9% 1,000 ML IV SCH (10:20)
[2020-12-24] MEDS ORDERED: Fentanyl CADD 100 ML ONE ×4 (00:08→21:32)
[2020-12-24] MEDS: Fentanyl CADD 100 ML IV SCH ×2 (00:12→11:51)
[2020-12-24] MEDS: methylPREDNISolone Sod Succ 40 MG VIAL IVP SCH ×4 (00:13→20:55)
[2020-12-24] MEDS: CEFAZOLIN 2 GM in Premix Bag 1 BAG IVPB SCH ×3 (00:29→17:40)
[2020-12-24 03:30] LABS: #Basophils 0.1 thou/uL (0.0-0.2); #Eosinphils 0.3 thou/uL (0.0-0.7); #Monocytes 0.1 thou/uL (0.11-0.59); #Neutrophils 4.5 thou/uL (1.40-6.50); %Basophils 1.3 % (0.0-1.0); %Monocytes 1.9 % (0.0-10.0); %Neutrophils 75.9 % (42.0-75.0); Hemoglobin 10.2 g/dL (12.0-16.0); Mean Corpuscular HGB CONC 33.5 g/dL (32.0-36.0); Mean Corpuscular Hemoglobin 32.2 pg (27.0-31.0); Mean Corpuscular Volume 96.3 fL (78.0-98.0); Mean Platelet Volume 8.6 fL (7.4-10.4); Platelet Count 109 thou/uL (130-400); RBC Distribution Width 13.9 % (11.5-14.5); Red Blood Cell (RBC) Count 3.17 mill/uL (4.20-5.40); White Blood Cell (WBC) Count 5.9 thou/uL (4.8-10.8)
[2020-12-24] MEDS: Propofol 1,000 MG/100 ML VIAL IV PRN ×2 (03:35→14:11)
[2020-12-24 03:45] LABS: Anion Gap 10 mmol/L (10-20); BUN (Urea Nitrogen) 10 mg/dL (9.8-20.1); Calc. Creatinine Clearance 260 mL/min (70-130); Calcium 7.3 mg/dL (7.8-10.44); Carbon Dioxide 30 mmol/L (22-29); Chloride 104 mmol/L (98-107); Glucose 66 mg/dL (70-105); Potassium 3.5 mmol/L (3.5-5.1); Sodium 140 mmol/L (136-145)
[2020-12-24] MEDS ORDERED: Potassium Chloride 20 MEQ TAB PO SCH (06:45)
[2020-12-24] MEDS: Sodium Chloride 0.9% 1,000 ML IV SCH (06:50)
[2020-12-24] MEDS ORDERED: Dextrose 50% Abboject 50 ML SYRINGE ONE (08:03)
[2020-12-24] MEDS: Ascorbic Acid 500 mg Chewable Tablet PO SCH (08:16)
[2020-12-24] MEDS: Zinc Sulfate 220 MG CAP PO SCH (08:16)
[2020-12-24] MEDS: Cholecalciferol (Vitamin D3) 400 UNITS TAB PO SCH (08:16)
[2020-12-24] MEDS: Famotidine 20 MG TAB PO SCH ×2 (08:16→20:54)
[2020-12-24] MEDS: Insulin Glargine 30 UNITS in Pre-Filled Syringe 1 EACH SC SCH (08:22)
[2020-12-24] MEDS: Enoxaparin Sodium 40 MG/0.4 ML SYRINGE SC SCH (08:26)
[2020-12-24] MEDS: risperiDONE 0.25 MG TAB PO SCH ×2 (08:26→20:55)
[2020-12-24] MEDS ORDERED: Insulin Glargine 20 UNITS in Pre-Filled Syringe 1 EACH SC SCH (09:26)
[2020-12-24 09:41] LABS: Actual Bicarbonate (HCO3a) 28.1 mEq/L (22-28); Base Excess (BEa) 3.6 mEq/L (-2.0 to +3.0); CO2 Tension 42.2 mmHg (35.0-45.0); Calcium, Ionized (arterial) 1.07 mmol/L (1.12-1.30); Carboxyhemoglobin (COHb) 0.2 gm% (0.0-3.0); Hemoglobin (Hb) 10.9 g/dL (12.0-16.0); Potassium - ABG Lab 3.31 mmol/L (3.70-5.30); pH, Arterial 7.44 (7.35-7.45)
[2020-12-24 09:46] LABS: O2 Tension (PaO2), arterial 47.1 mmHg (80.0-100.0)
[2020-12-24 09:47] LABS: Puncture Site RRA
[2020-12-24] MEDS: MEROPENEM 1 GM/50 ML 1 GM in Premix Bag 1 BAG IVPB SCH ×2 (10:57→19:35)
[2020-12-24] MEDS ORDERED: Dextrose 5% in Water 1,000 ML IV SCH (17:45)
[2020-12-24] MEDS: GUAIFENESIN SF SOLN 200 MG/10 ML UDCUP PO PRN (23:17)
[2020-12-25] MEDS: CEFAZOLIN 2 GM in Premix Bag 1 BAG IVPB SCH ×4 (00:42→23:58)
[2020-12-25] MEDS: MEROPENEM 1 GM/50 ML 1 GM in Premix Bag 1 BAG IVPB SCH ×3 (01:53→19:46)
[2020-12-25] MEDS: Propofol 1,000 MG/100 ML VIAL IV PRN ×3 (02:46→23:58)
[2020-12-25 04:53] LABS: Anion Gap 14 mmol/L (10-20); BUN (Urea Nitrogen) 7 mg/dL (9.8-20.1); Calc. Creatinine Clearance 249 mL/min (70-130); Calcium 7.6 mg/dL (7.8-10.44); Carbon Dioxide 29 mmol/L (22-29); Chloride 102 mmol/L (98-107); Glucose 83 mg/dL (70-105); Potassium 3.5 mmol/L (3.5-5.1); Sodium 141 mmol/L (136-145)
[2020-12-25 04:54] LABS: Band 43 % (5-11); Hemoglobin 11.1 g/dL (12.0-16.0); Lymphocytes 6 % (21-51); MDiff Complete? YES; Mean Corpuscular HGB CONC 32.6 g/dL (32.0-36.0); Mean Corpuscular Hemoglobin 31.5 pg (27.0-31.0); Mean Corpuscular Volume 96.6 fL (78.0-98.0); Mean Platelet Volume 8.8 fL (7.4-10.4); Metamyelocyte 2 % (0-0); Monocytes 1 % (0-10); Neutrophil 48 % (42-75); Nucleated RBC 1 % (0); Platelet Count 130 thou/uL (130-400); Platelet Morphology Comment Appears Adequate; RBC Distribution Width 14.4 % (11.5-14.5); Red Blood Cell (RBC) Count 3.54 mill/uL (4.20-5.40); White Blood Cell (WBC) Count 7.2 thou/uL (4.8-10.8)
[2020-12-25] MEDS ORDERED: Potassium Chloride 20 MEQ TAB PO SCH (06:30)
[2020-12-25] MEDS: Ascorbic Acid 500 mg Chewable Tablet PO SCH (09:00)
[2020-12-25] MEDS: Zinc Sulfate 220 MG CAP PO SCH (09:00)
[2020-12-25] MEDS: Famotidine 20 MG TAB PO SCH ×2 (09:00→21:14)
[2020-12-25] MEDS: Cholecalciferol (Vitamin D3) 400 UNITS TAB PO SCH (09:00)
[2020-12-25] MEDS: risperiDONE 0.25 MG TAB PO SCH ×2 (09:00→21:05)
[2020-12-25] MEDS ORDERED: Rocuronium Bromide 10 MG/ML (10ML VIAL) ONE (09:15)
[2020-12-25] MEDS ORDERED: Vecuronium 10 MG VIAL ONE (09:15)
[2020-12-25] MEDS ORDERED: EPINEPHrine 1 MG/ML AMP ONE (10:12)
[2020-12-25] MEDS ORDERED: Bupivacaine 0.25% HCL 30 ML VIAL ONE (10:12)
[2020-12-25] MEDS ORDERED: Dextrose 5% in Water 1,000 ML IV SCH (10:30)
[2020-12-25] MEDS: methylPREDNISolone Sod Succ 40 MG VIAL IVP SCH ×2 (10:44→21:05)
[2020-12-25] MEDS ORDERED: Ketamine 50 MG/ML (10ML VIAL) ONE (10:58)
[2020-12-25] MEDS ORDERED: Dextrose 50% Abboject 50 ML SYRINGE ONE ×2 (12:02)
[2020-12-25] MEDS ORDERED: PHENYLEPHRINE-NS 100 MCG/ML 10 ML SYRINGE ONE (12:03)
[2020-12-25] MEDS: Norepinephrine 8 MG/0.9% NS 250 ML IVPB SCH (16:47)
[2020-12-25] MEDS ORDERED: Fentanyl CADD 100 ML ONE (17:35)
[2020-12-25] MEDS: Fentanyl CADD 100 ML IV SCH (17:41)
[2020-12-25] MEDS: Sodium Chloride 0.9% 1,000 ML IV SCH (21:04)
[2020-12-25] MEDS: Acetaminophen 325 MG TAB PO PRN (21:04)
[2020-12-25] MEDS: GUAIFENESIN SF SOLN 200 MG/10 ML UDCUP PO PRN (21:13)
[2020-12-26] MEDS: MEROPENEM 1 GM/50 ML 1 GM in Premix Bag 1 BAG IVPB SCH ×3 (01:52→17:12)
[2020-12-26 04:16] LABS: #Eosinphils 0.1 thou/uL (0.0-0.7); #Lymphocytes 0.6 thou/uL (1.20-3.40); #Monocytes 0.1 thou/uL (0.11-0.59); #Neutrophils 6.2 thou/uL (1.40-6.50); %Basophils 0.7 % (0.0-1.0); %Eosinophils 1.2 % (0.0-10.0); %Lymphocytes 9.1 % (21.0-51.0); %Monocytes 1.3 % (0.0-10.0); %Neutrophils 87.7 % (42.0-75.0); Hemoglobin 9.5 g/dL (12.0-16.0); Mean Corpuscular HGB CONC 31.6 g/dL (32.0-36.0); Mean Corpuscular Hemoglobin 30.6 pg (27.0-31.0); Mean Corpuscular Volume 96.9 fL (78.0-98.0); Mean Platelet Volume 8.7 fL (7.4-10.4); Platelet Count 132 thou/uL (130-400); RBC Distribution Width 14.4 % (11.5-14.5); Red Blood Cell (RBC) Count 3.09 mill/uL (4.20-5.40); White Blood Cell (WBC) Count 7.1 thou/uL (4.8-10.8)
[2020-12-26 05:02] LABS: Anion Gap 8 mmol/L (10-20); BUN (Urea Nitrogen) 8 mg/dL (9.8-20.1); Calc. Creatinine Clearance 237 mL/min (70-130); Calcium 7.2 mg/dL (7.8-10.44); Carbon Dioxide 33 mmol/L (22-29); Chloride 104 mmol/L (98-107); Glucose 97 mg/dL (70-105); Potassium 3.3 mmol/L (3.5-5.1); Sodium 142 mmol/L (136-145)
[2020-12-26 06:09] VITALS: BMI 39.9
[2020-12-26] MEDS ORDERED: Potassium Bicarbonate/Cit Ac 20 MEQ TAB PER TUBE SCH (07:15)
[2020-12-26] MEDS: risperiDONE 0.25 MG TAB PO SCH ×2 (09:25→20:13)
[2020-12-26] MEDS: CEFAZOLIN 2 GM in Premix Bag 1 BAG IVPB SCH ×2 (09:26→15:41)
[2020-12-26] MEDS: Ascorbic Acid 500 mg Chewable Tablet PO SCH (09:27)
[2020-12-26] MEDS: Zinc Sulfate 220 MG CAP PO SCH (09:27)
[2020-12-26] MEDS: Cholecalciferol (Vitamin D3) 400 UNITS TAB PO SCH (09:27)
[2020-12-26] MEDS: Famotidine 20 MG TAB PO SCH ×2 (09:27→20:13)
[2020-12-26] MEDS: methylPREDNISolone Sod Succ 40 MG VIAL IVP SCH ×2 (09:28→20:13)
[2020-12-26] MEDS ORDERED: Dextrose 50% Abboject 50 ML SYRINGE SLOW IVP PRN (14:12)
[2020-12-26] MEDS ORDERED: Dextrose 5% in Water 1,000 ML IV PRN (14:12)
[2020-12-26] MEDS ORDERED: HumaLOG 300 UNITS/3 ML VIAL SC SCH (14:15)
[2020-12-26 15:03] VITALS: BP 120/58
[2020-12-26] MEDS ORDERED: Fentanyl CADD 100 ML ONE (19:07)
[2020-12-26] MEDS: Sodium Chloride 0.9% 1,000 ML IV SCH (20:11)
[2020-12-26 23:16] LABS: Actual Bicarbonate (HCO3a) 31.5 mEq/L (22-28); Base Excess (BEa) 5.4 mEq/L (-2.0 to +3.0); CO2 Tension 53.2 mmHg (35.0-45.0); Calcium, Ionized (arterial) 1.08 mmol/L (1.12-1.30); Carboxyhemoglobin (COHb) 1.9 gm% (0.0-3.0); Hemoglobin (Hb) 11.3 g/dL (12.0-16.0); Potassium - ABG Lab 3.73 mmol/L (3.70-5.30); pH, Arterial 7.39 (7.35-7.45)
[2020-12-26] MEDS ORDERED: Vecuronium 10 MG VIAL ONE (23:27)
[2020-12-27 00:11] LABS: O2 Tension (PaO2), arterial 23.2 mmHg (80.0-100.0); Puncture Site LRA
[2020-12-27] MEDS: CEFAZOLIN 2 GM in Premix Bag 1 BAG IVPB SCH ×2 (00:42→08:52)
[2020-12-27] MEDS: Vecuronium 10 MG VIAL IV PRN ×2 (00:42→02:19)
[2020-12-27] MEDS: MEROPENEM 1 GM/50 ML 1 GM in Premix Bag 1 BAG IVPB SCH ×2 (01:03→08:53)
[2020-12-27 05:04] LABS: #Basophils 0.1 thou/uL (0.0-0.2); #Lymphocytes 0.8 thou/uL (1.20-3.40); #Monocytes 0.1 thou/uL (0.11-0.59); #Neutrophils 8.4 thou/uL (1.40-6.50); %Basophils 0.7 % (0.0-1.0); %Eosinophils 0.4 % (0.0-10.0); %Lymphocytes 8.3 % (21.0-51.0); %Monocytes 1.4 % (0.0-10.0); %Neutrophils 89.2 % (42.0-75.0); Mean Corpuscular HGB CONC 32.2 g/dL (32.0-36.0); Mean Corpuscular Hemoglobin 31.8 pg (27.0-31.0); Mean Corpuscular Volume 98.8 fL (78.0-98.0); Mean Platelet Volume 8.9 fL (7.4-10.4); Platelet Count 183 thou/uL (130-400); RBC Distribution Width 14.9 % (11.5-14.5); Red Blood Cell (RBC) Count 3.45 mill/uL (4.20-5.40); White Blood Cell (WBC) Count 9.4 thou/uL (4.8-10.8)
[2020-12-27] MEDS ORDERED: Lidocaine 1% w/Epinephrine 1:100K 20 ML VIAL ONE (05:20)
[2020-12-27] MEDS ORDERED: Lidocaine 1% (PF) 30 ML VIAL ONE (05:20)
[2020-12-27 06:15] LABS: Anion Gap 17 mmol/L (10-20); BUN (Urea Nitrogen) 16 mg/dL (9.8-20.1); Calc. Creatinine Clearance 145 mL/min (70-130); Calcium 7.7 mg/dL (7.8-10.44); Carbon Dioxide 27 mmol/L (22-29); Chloride 102 mmol/L (98-107); Glucose 222 mg/dL (70-105); Potassium 4.6 mmol/L (3.5-5.1); Sodium 141 mmol/L (136-145)
[2020-12-27] MEDS: methylPREDNISolone Sod Succ 40 MG VIAL IVP SCH (08:53)
[2020-12-27] MEDS: Acetaminophen 325 MG TAB PO PRN (11:23)
[2020-12-27] MEDS ORDERED: EPINEPHrine 1 MG/10 ML Abboject SYRINGE ONE (12:13)
[2020-12-27] MEDS ORDERED: Hyoscyamine Sulfate SL 0.125 mg Tablet PO PRN (13:56)
[2020-12-27] MEDS: Sodium Chloride 0.9% 1,000 ML IV SCH (14:23)
[2020-12-27] MEDS ORDERED: Scopolamine 1.5 mg/72 hour Patch TD SCH (15:00)
[2020-12-27] MEDS: Cholecalciferol (Vitamin D3) 400 UNITS TAB PO SCH (16:07)
[2020-12-27] MEDS: Ascorbic Acid 500 mg Chewable Tablet PO SCH (16:07)
[2020-12-27] MEDS: Zinc Sulfate 220 MG CAP PO SCH (16:08)
[2020-12-27] MEDS: risperiDONE 0.25 MG TAB PO SCH (16:08)
[2020-12-27] MEDS: Famotidine 20 MG TAB PO SCH (16:08)
[2020-12-27 19:32] VITALS: TEMP 98.9
== END 2020-12-27 15:56 | disposition hospice, inpatient (51) | DRG 4 ==
LOC: ERS 23:26 → ERHOLD 11-26 01:54 → T4-A 11-26 19:50 → IMCU/EMU 11-28 23:16
PROVIDERS: ADMIT Internal Medicine; ATTEND Internal Medicine
PROC: 8E0ZXY6 Isolation (ICD-10-PCS; 2020-11-26)
PROC: XW033E5 Introduction of Remdesivir Anti-infective into Peripheral Vein, Percutaneous Approach, New Technology Group 5 (ICD-10-PCS; 2020-11-28)
PROC: 5A09557 Assistance with Respiratory Ventilation, Greater than 96 Consecutive Hours, Continuous Positive Airway Pressure (ICD-10-PCS; 2020-11-28)
PROC: XW13325 Transfusion of Convalescent Plasma (Nonautologous) into Peripheral Vein, Percutaneous Approach, New Technology Group 5 (ICD-10-PCS; principal; 2020-11-29)
PROC: 5A1955Z Respiratory Ventilation, Greater than 96 Consecutive Hours (ICD-10-PCS; 2020-12-04)
PROC: 0BH17EZ Insertion of Endotracheal Airway into Trachea, Via Natural or Artificial Opening (ICD-10-PCS; 2020-12-04)
PROC: 3E033XZ Introduction of Vasopressor into Peripheral Vein, Percutaneous Approach (ICD-10-PCS; 2020-12-15)
PROC: 05H633Z Insertion of Infusion Device into Left Subclavian Vein, Percutaneous Approach (ICD-10-PCS; 2020-12-15)
PROC: 04HL33Z Insertion of Infusion Device into Left Femoral Artery, Percutaneous Approach (ICD-10-PCS; 2020-12-15)
PROC: 5A12012 Performance of Cardiac Output, Single, Manual (ICD-10-PCS; 2020-12-19)
PROC: 02HV33Z Insertion of Infusion Device into Superior Vena Cava, Percutaneous Approach (ICD-10-PCS; 2020-12-21)
PROC: B548ZZA Ultrasonography of Superior Vena Cava, Guidance (ICD-10-PCS; 2020-12-21)
PROC: 0B110F4 Bypass Trachea to Cutaneous with Tracheostomy Device, Open Approach (ICD-10-PCS; 2020-12-25)
PROC: 0DH63UZ Insertion of Feeding Device into Stomach, Percutaneous Approach (ICD-10-PCS; 2020-12-25)
PROC: 0B9K8ZZ Drainage of Right Lung, Via Natural or Artificial Opening Endoscopic (ICD-10-PCS; 2020-12-25)
PROC: 0W9930Z Drainage of Right Pleural Cavity with Drainage Device, Percutaneous Approach (ICD-10-PCS; 2020-12-27)
DX: U07.1 COVID-19 (principal); J96.01 Acute respiratory failure with hypoxia; J12.82 Pneumonia due to coronavirus disease 2019; J15.20 Pneumonia due to staphylococcus, unspecified; I46.9 Cardiac arrest, cause unspecified; G93.41 Metabolic encephalopathy; Z66 Do not resuscitate; Z51.5 Encounter for palliative care; A41.01 Sepsis due to Methicillin susceptible Staphylococcus aureus; J69.0 Pneumonitis due to inhalation of food and vomit; Z68.41 Body mass index [BMI] 40.0-44.9, adult; E46 Unspecified protein-calorie malnutrition; J93.83 Other pneumothorax; E87.6 Hypokalemia; D64.9 Anemia, unspecified; E66.01 Morbid (severe) obesity due to excess calories; E11.65 Type 2 diabetes mellitus with hyperglycemia; F41.9 Anxiety disorder, unspecified; T38.0X5A Adverse effect of glucocorticoids and synthetic analogues, initial encounter; E11.649 Type 2 diabetes mellitus with hypoglycemia without coma; I95.2 Hypotension due to drugs; T42.75XA Adverse effect of unspecified antiepileptic and sedative-hypnotic drugs, initial encounter; Z88.6 Allergy status to analgesic agent; Z28.21 Immunization not carried out because of patient refusal; Z88.8 Allergy status to other drugs, medicaments and biological substances; Z78.1 Physical restraint status; Z90.49 Acquired absence of other specified parts of digestive tract; Z90.710 Acquired absence of both cervix and uterus; Z79.899 Other long term (current) drug therapy; Z79.02 Long term (current) use of antithrombotics/antiplatelets
CPT/HCPCS: 31624; 36415; 36416; 36430; 36569; 36600; 71045; 80048; 80053; 80076; 82728; 82805; 83615; 83735; 84100; 84145; 85007; 85025; 85027; 85379; 86140; 86850; 86900; 86901; 87040; 87070; 87077; 87086; 87149; 87186; 87205; 87635; 92950; 93005; 93010; 94002; 94003; 94660; 94760; C1751; C9113; J0171; J0690; J0692; J1100; J1650; J1815; J1940; J2020; J2060; J2185; J2405; J2704; J2920; J3010; J3475; J3480; J3490; J7050; J7070; P9017; P9045; Q0162; S0020; S0028; U0002; U0003

== ENCOUNTER 2020-12-27 16:25 | Inpatient (IN) | payer OTHER ==
[2020-12-27] MEDS ORDERED: Lorazepam 2 MG/ML VIAL ONE (16:46)
[2020-12-27] MEDS ORDERED: Morphine 4 MG/ML VIAL ONE (16:46)
[2020-12-27] MEDS ORDERED: Scopolamine 1.5 mg/72 hour Patch TOP PRN (17:00)
[2020-12-27] MEDS ORDERED: Morphine 4 MG/ML VIAL SLOW IVP SCH (17:00)
[2020-12-27] MEDS ORDERED: Ondansetron PF 4 MG/2 ML Vial IVP PRN (17:00)
[2020-12-27] MEDS ORDERED: Haloperidol Lactate 5 MG/ML VIAL SLOW IVP PRN (17:00)
[2020-12-27] MEDS ORDERED: Lorazepam 2 MG/ML VIAL SLOW IVP SCH (17:00)
[2020-12-27] MEDS ORDERED: Acetaminophen 650 MG Suppository PR PRN (17:00)
== END 2020-12-27 17:17 | disposition expired | DRG 951 ==
LOC: IMCU/EMU 16:25
PROVIDERS: ADMIT Family Medicine; ATTEND Family Medicine
DX: Z51.5 Encounter for palliative care (principal); Z66 Do not resuscitate; U07.1 COVID-19; J12.82 Pneumonia due to coronavirus disease 2019; J96.00 Acute respiratory failure, unspecified whether with hypoxia or hypercapnia
CPT/HCPCS: J2060; J2270